=== PATIENT | male | born 1935 | race Caucasian/White ===

== ENCOUNTER 2016-12-23 09:44 | Outpatient (CLI) | payer MEDICARE, BC, OTHER ==
[2016-12-23 12:03] LABS: #Eosinphils 0.1 thou/uL (0.0-0.7); #Lymphocytes 1.2 thou/uL (1.20-3.40); #Monocytes 0.5 thou/uL (0.11-0.59); #Neutrophils 4.8 thou/uL (1.40-6.50); %Basophils 0.5 % (0.0-1.0); %Eosinophils 1.1 % (0.0-10.0); %Lymphocytes 18.8 % (21.0-51.0); %Monocytes 7.3 % (0.0-10.0); Hematocrit 43.3 % (42.0-52.0); Red Blood Cell (RBC) Count 5.15 mill/uL (4.70-6.10); White Blood Cell (WBC) Count 6.6 thou/uL (4.8-10.8)
[2016-12-23 12:27] LABS: ALT (SGPT) 23 U/L (8-55); AST (SGOT) 23 U/L (5-34); Alkaline Phosphatase 79 U/L (40-150); Anion Gap 12 mmol/L (10-20); BUN (Urea Nitrogen) 13 mg/dL (8.4-25.7); Calc. Creatinine Clearance 0 mL/min (70-130); Calcium 9.8 mg/dL (7.8-10.44); Carbon Dioxide 28 mmol/L (23-31); Chloride 105 mmol/L (98-107); Estimated GFR-MDRD 64
== END 2016-12-23 09:45 | disposition home or self-care (01) ==
LOC: LABBT 09:44
PROVIDERS: ATTEND Surgery
DX: Z01.818 Encounter for other preprocedural examination (principal); K40.90 Unilateral inguinal hernia, without obstruction or gangrene, not specified as recurrent
CPT/HCPCS: 80053; 85025; 93005; 93010

== ENCOUNTER 2016-12-29 05:44 | Day surgery (SDC) | payer MEDICARE, BC, OTHER ==
[2016-12-23 10:06] VITALS: BMI 25.1
[2016-12-29] MEDS ORDERED: Fentanyl 100 MCG/2 ML VIAL ONE (06:49)
[2016-12-29] MEDS ORDERED: Bupivacaine HCl 0.5%/Epinephrine 1:200,000/PF 30 ml Vial ONE (07:07)
[2016-12-29] MEDS ORDERED: Ondansetron HCl/PF 4 MG/2 ML Vial ONE (07:35)
[2016-12-29] MEDS ORDERED: Propofol 200 MG/20 ML VIAL ONE (07:35)
[2016-12-29] MEDS ORDERED: Lidocaine 1% PF 5 ML VIAL ONE (07:35)
--- NOTE | 2016-12-29 08:42 | OP ---
DATE OF PROCEDURE: 12/29/2016 PREOPERATIVE DIAGNOSIS: Left inguinal hernia. SURGEON: Darwin Raya M.D. PROCEDURE PERFORMED: Left inguinal hernia repair with mesh. INDICATIONS: The patient is an 81-year-old male who noticed a painful bulge in the left groin and w as found to have a hernia. FINDINGS: Left direct inguinal hernia. PROCEDURE: After informed consent was obtained, the patient was taken to the operating room and giv en general mask anesthesia, placed in the supine position. Groin was prepped and draped in the usua l fashion. Local anesthesia infiltrated subcutaneously and deep. A transverse left inguinal incisi on was performed. The subcu divided sharply. The fascia of the external oblique was incised in the direction of its fibers through the external ring. The spermatic cord isolated with a [place] drai n. Cremasteric fibers were . There was a lipoma of the cord, but no hernia sac found. Th ere was a moderate to large sized direct inguinal hernia. This was circumscribed and reduced. Redu ction maintained with a PHS hernia system which was placed in the preperitoneal space, laid out ante rior, sutured to the pubic tubercle medially with a 2-0 Prolene suture. Laterally, it was tucked un jayashree the external oblique fascia. The cord placed anatomically. The external oblique fascia closed with a running 3-0 Vicryl. Citlali's closed with interrupted 3-0 Vicryl and the skin closed with a r unning subcuticular 4-0 Rapide. Steri-Strips applied. Sterile bandage applied. The patient tolera matthias the procedure well and transferred to recovery in good condition. Sponge and needle count verif ied correct x2.
== END 2016-12-29 09:33 | disposition home or self-care (01) ==
LOC: SDC 05:44
PROVIDERS: ATTEND Surgery
PROC: 0YU60JZ Supplement Left Inguinal Region with Synthetic Substitute, Open Approach (ICD-10-PCS; principal; 2016-12-29)
DX: K40.90 Unilateral inguinal hernia, without obstruction or gangrene, not specified as recurrent (principal); E11.9 Type 2 diabetes mellitus without complications; I10 Essential (primary) hypertension; E78.5 Hyperlipidemia, unspecified; K21.9 Gastro-esophageal reflux disease without esophagitis; F32.9 Major depressive disorder, single episode, unspecified; M19.90 Unspecified osteoarthritis, unspecified site; Z98.41 Cataract extraction status, right eye; Z98.42 Cataract extraction status, left eye; Z96.653 Presence of artificial knee joint, bilateral; Z90.49 Acquired absence of other specified parts of digestive tract; Z96.642 Presence of left artificial hip joint; Z95.9 Presence of cardiac and vascular implant and graft, unspecified; Z79.84 Long term (current) use of oral hypoglycemic drugs; Z79.82 Long term (current) use of aspirin; Z96.1 Presence of intraocular lens; Z91.018 Allergy to other foods; Z88.5 Allergy status to narcotic agent
CPT/HCPCS: 49505; C1781; J0670; J2001; J2405; J2704; J3010

== ENCOUNTER 2017-06-23 12:39 | Outpatient (CLI) | payer MEDICARE, BC, OTHER ==
[2017-06-23 13:56] LABS: Hemoglobin 12.7 g/dL (14.0-18.0); Mean Corpuscular HGB CONC 30.8 g/dL (32.0-36.0); Mean Corpuscular Hemoglobin 25.8 pg (27.0-31.0); Mean Corpuscular Volume 83.8 fl (80.0-94.0); Mean Platelet Volume 7.8 fL (7.4-10.4); Platelet Count 273 thou/uL (130-400); RBC Distribution Width 14.6 % (11.5-14.5); Red Blood Cell (RBC) Count 4.92 mill/uL (4.70-6.10); White Blood Cell (WBC) Count 4.9 thou/uL (4.8-10.8)
[2017-06-23 14:17] LABS: Anion Gap 11 mmol/L (10-20); BUN (Urea Nitrogen) 10 mg/dL (8.4-25.7); Calc. Creatinine Clearance 0 mL/min (70-130); Calcium 9.2 mg/dL (7.8-10.44); Carbon Dioxide 26 mmol/L (23-31); Chloride 106 mmol/L (98-107); Estimated GFR-MDRD 62; Glucose 135 mg/dL (83-110); Potassium 4.1 mmol/L (3.5-5.1); Sodium 139 mmol/L (136-145)
[2017-06-23 14:20] LABS: INR-International Normal Ratio 1.1; PTT 30.1 SEC (22.9-36.1)
== END 2017-06-23 12:40 | disposition home or self-care (01) ==
LOC: LABBT 12:39
PROVIDERS: ATTEND Internal Medicine Cardiovascular Disease
DX: Z01.812 Encounter for preprocedural laboratory examination (principal); I25.10 Atherosclerotic heart disease of native coronary artery without angina pectoris
CPT/HCPCS: 80048; 85027; 85610; 85730

== ENCOUNTER 2017-06-28 05:46 | Day surgery (SDC) | payer MEDICARE, BC, OTHER ==
[2017-06-23 13:05] VITALS: BMI 25.7
[2017-06-28] MEDS ORDERED: Diazepam 5 MG TAB ONE (06:13)
[2017-06-28] MEDS ORDERED: Lidocaine 1% (PF) 30 ML VIAL ONE ×2 (06:34)
[2017-06-28] MEDS ORDERED: Midazolam HCl 2 mg/2 ml Vial ONE (07:30)
[2017-06-28] MEDS ORDERED: Fentanyl 100 MCG/2 ML VIAL ONE (07:30)
[2017-06-28] MEDS ORDERED: Iopamidol 370 76% 100 ML VIAL ONE (09:46)
== END 2017-06-28 12:50 ==
LOC: CCL 05:46
PROVIDERS: ATTEND Internal Medicine Cardiovascular Disease
PROC: 4A023N7 Measurement of Cardiac Sampling and Pressure, Left Heart, Percutaneous Approach (ICD-10-PCS; principal; 2017-06-28)
PROC: B2111ZZ Fluoroscopy of Multiple Coronary Arteries using Low Osmolar Contrast (ICD-10-PCS; 2017-06-28)
DX: I25.118 Atherosclerotic heart disease of native coronary artery with other forms of angina pectoris (principal); I10 Essential (primary) hypertension; E78.2 Mixed hyperlipidemia; E78.00 Pure hypercholesterolemia, unspecified; Z88.5 Allergy status to narcotic agent; Z88.8 Allergy status to other drugs, medicaments and biological substances; Z79.02 Long term (current) use of antithrombotics/antiplatelets; Z79.82 Long term (current) use of aspirin; Z79.84 Long term (current) use of oral hypoglycemic drugs; Z79.899 Other long term (current) drug therapy
CPT/HCPCS: 76942; 93458; C1769; 99152; 99153; J1644; J2001; J2250; J3010

== ENCOUNTER 2017-07-28 13:30 | Inpatient (IN) | payer MEDICARE, BC, OTHER ==
[2017-08-01] MEDS ORDERED: Heparin 10,000 UNITS/1 ML VIAL 30,000 UNITS in Sodium Chloride 0.9% 1,000 ML FS SCH (06:45)
[2017-08-01] MEDS ORDERED: Albumin 5% 500 ML ONE (06:53)
[2017-08-01] MEDS ORDERED: CEFAZOLIN/Water 2 GM/20 ML SYRINGE ONE (07:34)
[2017-08-01] MEDS ORDERED: Midazolam HCl 5 mg/5 ml Vial ONE (09:17)
[2017-08-01] MEDS ORDERED: Fentanyl 100 MCG/2 ML VIAL ONE (09:17)
[2017-08-01] MEDS ORDERED: Midazolam HCl 2 mg/2 ml Vial ONE (09:17)
[2017-08-01] MEDS ORDERED: Vecuronium 10 MG VIAL ONE ×2 (09:18→12:20)
[2017-08-01] MEDS ORDERED: Dexmedetomidine 200 MCG/2 ML VIAL ONE (09:23)
[2017-08-01] MEDS ORDERED: Insulin Regular 300 UNITS/3 ML VIAL ONE (11:55)
[2017-08-01] MEDS ORDERED: Protamine Sulfate 250 MG/25 ML VIAL ONE (12:20)
[2017-08-01] MEDS ORDERED: Heparin 5,000 UNITS/ML VIAL ONE (12:20)
[2017-08-01] MEDS ORDERED: Lidocaine 1% PF 5 ML VIAL ONE (12:20)
[2017-08-01] MEDS ORDERED: Papaverine 60 MG/2 ML VIAL ONE (12:20)
[2017-08-01] MEDS ORDERED: Heparin 30,000 units/30 ml VIAL ONE (12:20)
[2017-08-01] MEDS ORDERED: Aminocaproic Acid 5 GM/20 ML VIAL ONE (12:20)
[2017-08-01] MEDS ORDERED: Thrombin 5000 UNITS/5 ML VIAL ONE (12:20)
[2017-08-01] MEDS ORDERED: Cardioplegic Soln 1,000 ML BAG ONE (12:20)
[2017-08-01] MEDS ORDERED: Magnesium 5 GM/10 ML VIAL ONE (12:20)
[2017-08-01] MEDS ORDERED: Nitroglycerin 50 MG/250 ML BOT ONE (12:20)
[2017-08-01] MEDS ORDERED: Sodium Bicarb 50 MEQ/50 ML Abboject 8.4% SYRINGE ONE (12:20)
[2017-08-01] MEDS ORDERED: Potassium Chloride 60 MEQ/30 ML VIAL ONE (12:20)
[2017-08-01] MEDS ORDERED: ePHEDrine/0.9% NaCl/PF SYRINGE 50 mg/10 ml ONE (12:20)
[2017-08-01] MEDS ORDERED: Calcium Chloride 1 GM/10 ML Abboject SYRINGE ONE (12:20)
[2017-08-01] MEDS ORDERED: PHENYLEPHRINE-NS 100 MCG/ML 10 ML SYRINGE ONE (12:20)
[2017-08-01] MEDS ORDERED: Lidocaine 2% PF 100 mg/5 ml Syringe ONE (12:20)
[2017-08-01] MEDS ORDERED: Mag-Al 1200 mg/1200 mg/30 ML UDCUP PO PRN (13:05)
[2017-08-01] MEDS ORDERED: Phenylephrine 10 MG/NS 250 ML 250 ML IVPB PRN (13:05)
[2017-08-01] MEDS ORDERED: Bisacodyl 10 MG SUPP PR PRN (13:05)
[2017-08-01] MEDS ORDERED: Ondansetron HCl/PF 4 MG/2 ML Vial IVP PRN (13:05)
[2017-08-01] MEDS ORDERED: hydrALAZINE 20 MG/ML VIAL SLOW IVP PRN (13:05)
[2017-08-01] MEDS ORDERED: DOPamine 400 MG/D5W 250 ML 250 ML IVPB PRN (13:05)
[2017-08-01] MEDS ORDERED: HYDROcodone/Acetaminophen 5/325 mg Tablet PO PRN (13:05)
[2017-08-01] MEDS ORDERED: Bisacodyl 5 MG TAB PO PRN (13:05)
[2017-08-01] MEDS ORDERED: Hetastarch 6% 500 ML 500 ML IVPB PRN (13:05)
[2017-08-01] MEDS ORDERED: Fentanyl 100 MCG/2 ML VIAL SLOW IVP PRN ×2 (13:05)
[2017-08-01] MEDS ORDERED: Potassium Chloride 20 MEQ/100 ML PREMIX BAG IVPB PRN (13:05)
[2017-08-01] MEDS ORDERED: Promethazine HCl 25 MG/ML VIAL IM PRN (13:05)
[2017-08-01] MEDS ORDERED: Guaifenesin DM 100-10/5 ML UDCUP PO PRN (13:05)
[2017-08-01] MEDS ORDERED: Nitroglycerin 50 MG/250 ML BOT 250 ML IVPB PRN (13:05)
[2017-08-01] MEDS ORDERED: Acetaminophen 325 MG TAB PO PRN (13:05)
[2017-08-01] MEDS ORDERED: Post-Op Insulin Drip Protocol IVPB ONE (13:05)
[2017-08-01] MEDS ORDERED: Magnesium 2 GM/NS 0.9% 100 ML 2 GM in Premix Bag 1 BAG IVPB SCH (13:15)
[2017-08-01] MEDS ORDERED: Insulin Regular 300 UNITS/3 ML VIAL SC PRN (13:19)
[2017-08-01] MEDS ORDERED: Dextrose 50% Abboject 50 ML SYRINGE SLOW IVP PRN (13:19)
[2017-08-01] MEDS ORDERED: Dextrose 5% in Water 1,000 ML IV PRN (13:19)
[2017-08-01 13:43] LABS: Hemoglobin 10.5 g/dL (14.0-18.0); Mean Corpuscular HGB CONC 31.2 g/dL (32.0-36.0); Mean Corpuscular Hemoglobin 25.6 pg (27.0-31.0); Mean Platelet Volume 7.5 fL (7.4-10.4); Platelet Count 172 thou/uL (130-400); RBC Distribution Width 14.2 % (11.5-14.5); White Blood Cell (WBC) Count 6.3 thou/uL (4.8-10.8)
[2017-08-01 13:44] LABS: INR-International Normal Ratio 1.4; PTT 30.9 SEC (22.9-36.1); Prothrombin Time 17.3 SEC (12.0-14.7)
[2017-08-01 13:59] LABS: Band 24 % (5-11); Lymphocytes 2 % (21-51); MDiff Complete? YES; Metamyelocyte 3 % (0-0); Neutrophil 70 % (42-75); Ovalocytes SLIGHT = 2-5 cells (100X) (0-1/hpf); PLT Morphology Comment Appears Adequate; Polychromasia SLIGHT = 2-3 cells (100X) (0-2/hpf); Reactive Lymphocytes 1 % (0-10); Tear Drops SLIGHT = 2-5 cells (100X) (0-1/hpf); Vacuoles SLIGHT
[2017-08-01 14:02] LABS: Anion Gap 9 mmol/L (10-20); BUN (Urea Nitrogen) 15 mg/dL (8.4-25.7); Calc. Creatinine Clearance 73 mL/min (70-130); Calcium 8.4 mg/dL (7.8-10.44); Carbon Dioxide 23 mmol/L (23-31); Chloride 114 mmol/L (98-107); Estimated GFR-MDRD 80; Glucose 119 mg/dL (83-110); Potassium 3.8 mmol/L (3.5-5.1); Sodium 142 mmol/L (136-145)
[2017-08-01 14:20] VITALS: BMI 26.2
[2017-08-01] MEDS: Lactated Ringer's 1,000 ML IV SCH ×2 (14:22→23:24)
[2017-08-01 14:47] LABS: Actual Bicarbonate (HCO3a) 21.2 mEq/L (22-26); Base Excess (BEa) -2.4 mEq/L (0 (+/-) 2.5); CO2 Tension 32.6 mmHg (35.0-45.0); Hematocrit-ABG 32.9 % (42.0-52.0); Hemoglobin (Hb) 10.7 g/dL (14.0-18.0); O2 Tension (PaO2) 80.4 mmHg (80.0-100.0); pH, Arterial 7.43 (7.35-7.45)
[2017-08-01 14:48] LABS: Calcium, Ionized 1.3 mmol/L (1.12-1.30); Puncture Site ALINE
--- NOTE | 2017-08-01 14:51 | RAD ---
PORTABLE SUPINE CHEST 1 VIEW: Date: 08/01/17 HISTORY: 82-year-old male history postop open heart. COMPARISON: 01/08/14. FINDINGS: Endotracheal tube and right subclavian catheters and chest tubes are in place. There is some bilatera l vascular congestion with some slightly more prominent pleural and parenchymal opacity changes in th e left base, probably postoperative change. No pneumothorax. IMPRESSION: Recent postoperative changes. Mild vascular congestion. Increased markings in the bases, consistent w ith postoperative change. Continue short-term follow-up for clearing or stability. POS: [facility]
[2017-08-01] MEDS: CEFAZOLIN/Water 2 GM/20 ML SYRINGE SLOW IVP SCH ×2 (16:26→23:26)
[2017-08-01] MEDS: Ketorolac Tromethamine 30 MG/ML VIAL IVP SCH ×2 (17:12→23:16)
[2017-08-01 17:59] LABS: Base Excess (BEa) -5.1 mEq/L (0 (+/-) 2.5); CO2 Tension 36.7 mmHg (35.0-45.0); Calcium, Ionized 1.2 mmol/L (1.12-1.30); Hematocrit-ABG 29.4 % (42.0-52.0); Hemoglobin (Hb) 9.6 g/dL (14.0-18.0); O2 Tension (PaO2) 92.7 mmHg (80.0-100.0); Puncture Site ALINE; pH, Arterial 7.35 (7.35-7.45)
[2017-08-01 18:00] LABS: ALV-art Gradient 144.625 (0-20)
[2017-08-01 19:29] LABS: Hemoglobin 9.9 g/dL (14.0-18.0)
[2017-08-01 19:46] LABS: Potassium 4.1 mmol/L (3.5-5.1)
[2017-08-01] MEDS ORDERED: Famotidine 40 MG/4 ML VIAL SLOW IVP SCH (21:00)
[2017-08-01] MEDS ORDERED: Famotidine/PF 20 mg/2ml Vial SLOW IVP SCH (21:00)
[2017-08-01] MEDS ORDERED: Prevnar 13-Val Conj/PF 0.5 ML SYRINGE IM ONE (21:00)
[2017-08-02 05:21] LABS: #Lymphocytes 0.3 thou/uL (1.20-3.40); #Monocytes 0.5 thou/uL (0.11-0.59); #Neutrophils 7.7 thou/uL (1.40-6.50); %Basophils 0.1 % (0.0-1.0); %Eosinophils 0.1 % (0.0-10.0); %Monocytes 5.9 % (0.0-10.0); %Neutrophils 89.9 % (42.0-75.0); Hemoglobin 9.5 g/dL (14.0-18.0); Mean Corpuscular Hemoglobin 26.2 pg (27.0-31.0); Mean Corpuscular Volume 82.1 fl (80.0-94.0); Mean Platelet Volume 8.1 fL (7.4-10.4); Platelet Count 195 thou/uL (130-400); RBC Distribution Width 14.4 % (11.5-14.5); Red Blood Cell (RBC) Count 3.64 mill/uL (4.70-6.10); White Blood Cell (WBC) Count 8.6 thou/uL (4.8-10.8)
[2017-08-02 05:29] LABS: Anion Gap 9 mmol/L (10-20); BUN (Urea Nitrogen) 18 mg/dL (8.4-25.7); Calc. Creatinine Clearance 68 mL/min (70-130); Calcium 8.2 mg/dL (7.8-10.44); Carbon Dioxide 24 mmol/L (23-31); Chloride 113 mmol/L (98-107); Estimated GFR-MDRD 72; Glucose 114 mg/dL (83-110); Sodium 142 mmol/L (136-145)
[2017-08-02] MEDS: Ketorolac Tromethamine 30 MG/ML VIAL IVP SCH ×3 (05:52→17:22)
[2017-08-02] MEDS: CEFAZOLIN/Water 2 GM/20 ML SYRINGE SLOW IVP SCH (06:02)
[2017-08-02] MEDS ORDERED: PRE FILLED SC SCH (07:30)
[2017-08-02] MEDS ORDERED: INSULIN DETEMIR SC SCH (07:30)
--- NOTE | 2017-08-02 08:38 | PRG ---
DATE OF SERVICE: 08/02/2017 HISTORY: Mr. Mcclellan is up in the chair, feeling well. He is in normal sinus rhythm. The chest tubes are in place draining blood-tinged fluid. PHYSICAL EXAMINATION: VITAL SIGNS: Blood pressure 131/67, pulse is 70-80, it is sinus. LUNGS: Clear. CARDIAC: Normal S1, S2. ABDOMEN: Soft, nontender. EXTREMITIES: No edema. ASSESSMENT: 1. Status post coronary bypass grafting. 2. Severe atherosclerotic heart disease. PLAN: 1. Will hold off on Plavix today, probably resume tomorrow if the chest tubes are able to be removed . 2. Beta blockers and SURYA inhibitors as tolerated.
--- NOTE | 2017-08-02 08:50 | RAD ---
PORTABLE AP CHEST XRAY: DATE: 08/02/17. HISTORY: Post open heart surgery. COMPARISON: 08/01/17. FINDINGS: The endotracheal tube has been removed. The bilateral thoracostomy tubes and right internal jugular vein and central venous catheter remain in place and unchanged in position. Mediastinal drain is aga in noted. Postsurgical changes related to CABG are present. There is increased density at the left lung base in a retrocardiac location probably related to atelectasis. Pulmonary vasculature is withi n normal limits. Cardiac silhouette is magnified by projection. Vascular calcification is seen in t he thoracic aorta. There is a questionable tiny pleural effusion. IMPRESSION: Interval removal of the endotracheal tube. The chest is otherwise stable with volume loss at the lef t lung base. POS: [facility]
[2017-08-02] MEDS ORDERED: Aspirin 325 MG TAB PO SCH (09:00)
[2017-08-02] MEDS ORDERED: Clopidogrel Bisulfate 75 MG TAB PO SCH (09:00)
[2017-08-02] MEDS: Aspirin 81 mg Enteric Coated Tablet PO SCH (09:17)
[2017-08-02] MEDS: Famotidine 20 MG TAB PO SCH ×2 (09:17→20:33)
[2017-08-02] MEDS: HYDROcodone/Acetaminophen 5/325 mg Tablet PO PRN ×2 (09:48→20:34)
--- NOTE | 2017-08-02 14:31 | EKG ---
Test Reason : POST CABG Blood Pressure : / mmHG Vent. Rate : 057 BPM Atrial Rate : 057 BPM P-R Int : 186 ms QRS Dur : 096 ms QT Int : 468 ms P-R-T Axes : 078 002 050 degrees QTc Int : 455 ms Sinus bradycardia with marked sinus arrhythmia Low voltage QRS Borderline ECG When compared with ECG of 23-DEC-2016 10:59, Questionable change in QRS axis Nonspecific T wave abnormality no longer evident in Inferior leads Confirmed by DR. Cholo LI ([id number]) on 08/02/2017 2:31:28 PM Referred By: VLAD Confirmed By:DR. Cholo LI
[2017-08-02] MEDS: Carvedilol 3.125 MG TAB PO SCH (17:07)
[2017-08-02] MEDS: Atorvastatin Calcium 40 MG TAB PO SCH (20:33)
[2017-08-03] MEDS: Ketorolac Tromethamine 30 MG/ML VIAL IVP SCH ×2 (00:37→05:09)
[2017-08-03 04:13] LABS: #Lymphocytes 1.1 thou/uL (1.20-3.40); #Monocytes 1.1 thou/uL (0.11-0.59); #Neutrophils 6.3 thou/uL (1.40-6.50); %Basophils 0.2 % (0.0-1.0); %Eosinophils 0.3 % (0.0-10.0); %Lymphocytes 13.4 % (21.0-51.0); %Monocytes 12.8 % (0.0-10.0); %Neutrophils 73.2 % (42.0-75.0); Mean Corpuscular HGB CONC 31.3 g/dL (32.0-36.0); Mean Corpuscular Hemoglobin 25.9 pg (27.0-31.0); Mean Corpuscular Volume 82.7 fl (80.0-94.0); Mean Platelet Volume 8.1 fL (7.4-10.4); Platelet Count 184 thou/uL (130-400); RBC Distribution Width 14.7 % (11.5-14.5); Red Blood Cell (RBC) Count 3.87 mill/uL (4.70-6.10); White Blood Cell (WBC) Count 8.5 thou/uL (4.8-10.8)
[2017-08-03 04:26] LABS: Anion Gap 9 mmol/L (10-20); BUN (Urea Nitrogen) 25 mg/dL (8.4-25.7); Calc. Creatinine Clearance 74 mL/min (70-130); Calcium 7.8 mg/dL (7.8-10.44); Carbon Dioxide 29 mmol/L (23-31); Chloride 108 mmol/L (98-107); Estimated GFR-MDRD 80; Glucose 104 mg/dL (83-110); Potassium 4.1 mmol/L (3.5-5.1); Sodium 142 mmol/L (136-145)
[2017-08-03] MEDS: Carvedilol 3.125 MG TAB PO SCH ×2 (08:32→17:43)
[2017-08-03] MEDS: Aspirin 81 mg Enteric Coated Tablet PO SCH (08:32)
[2017-08-03] MEDS: Famotidine 20 MG TAB PO SCH ×2 (08:32→20:06)
--- NOTE | 2017-08-03 08:44 | PRG ---
DATE OF SERVICE: 08/03/2017 Mr. Mcclellan is doing well. He is awake and alert. The chest tubes are out. He feels well. PHYSICAL EXAMINATION: VITAL SIGNS: Blood pressure 132/65, pulse is 70. LUNGS: Clear. CARDIAC: Normal S1, normal S2. ABDOMEN: Soft, nontender. EXTREMITIES: There is no edema. ASSESSMENT: 1. Status post bypass surgery, doing well. 2. Hypertension, controlled. PLAN: Continue current medical regimen. The patient will be transferred to the floor. We will hold Plavix at this point.
[2017-08-03] MEDS ORDERED: Clopidogrel Bisulfate 75 MG TAB PO SCH (09:00)
[2017-08-03] MEDS ORDERED: Ondansetron HCl/PF 4 MG/2 ML Vial IVP PRN (09:11)
[2017-08-03] MEDS ORDERED: Aspirin 325 mg Enteric Coated Tablet PO SCH ×2 (09:11→09:30)
[2017-08-03] MEDS ORDERED: Fentanyl 100 MCG/2 ML VIAL SLOW IVP PRN (09:11)
[2017-08-03] MEDS ORDERED: Mag-Al 1200 mg/1200 mg/30 ML UDCUP PO PRN (09:11)
[2017-08-03] MEDS ORDERED: Bisacodyl 5 MG TAB PO PRN (09:11)
[2017-08-03] MEDS ORDERED: Furosemide 40 MG TAB PO SCH ×2 (09:11→09:30)
[2017-08-03] MEDS ORDERED: Potassium Chloride 10 MEQ TAB PO SCH ×2 (09:11→09:30)
[2017-08-03] MEDS ORDERED: Nitroglycerin 0.4 MG TAB (25 Tab Bottle) SL PRN (09:11)
[2017-08-03] MEDS ORDERED: Bisacodyl 10 MG SUPP PR PRN (09:11)
[2017-08-03] MEDS ORDERED: Famotidine 20 MG TAB PO SCH ×2 (09:11→09:30)
[2017-08-03] MEDS ORDERED: Acetaminophen 325 MG TAB PO PRN (09:11)
[2017-08-03] MEDS ORDERED: Guaifenesin DM 100-10/5 ML UDCUP PO PRN (09:11)
--- NOTE | 2017-08-03 09:39 | RAD ---
CHEST 1 VIEW: Date: 08/03/17 HISTORY: Open heart surgery. COMPARISON: Radiograph from prior day. FINDINGS: Right central venous catheter tip is in good position. Mediastinal drains and thoracostomy drains are similar. No pneumothorax. Small left effusion. Improving edema. IMPRESSION: Improving postoperative status. POS: [facility]
[2017-08-03] MEDS ORDERED: Dextrose 5% in Water 1,000 ML IV PRN (10:03)
[2017-08-03] MEDS ORDERED: Dextrose 50% Abboject 50 ML SYRINGE SLOW IVP PRN (10:03)
[2017-08-03] MEDS: HYDROcodone/Acetaminophen 5/325 mg Tablet PO PRN ×2 (11:16→17:44)
[2017-08-03] MEDS: Insulin Regular 300 UNITS/3 ML VIAL SC PRN ×2 (18:15→21:29)
[2017-08-03] MEDS: Atorvastatin Calcium 40 MG TAB PO SCH (20:06)
--- NOTE | 2017-08-04 08:28 | PRG ---
DATE OF SERVICE: 08/04/2017 SUBJECTIVE: Mr. Mcclellan feels well. He was up walking around yesterday, feeling well. OBJECTIVE: VITAL SIGNS: Blood pressure is 137/73, pulse 80. LUNGS: Clear. CARDIAC: Normal S1, normal S2. ABDOMEN: Soft, nontender. EXTREMITIES: There is no edema. ASSESSMENT: 1. Status post bypass surgery, doing well. 2. Hypercholesterolemia, on medicine. 3. Relatively diffuse atherosclerotic heart disease. PLAN: 1. We will go ahead and resume clopidogrel one tablet a day on Tuesday. 2. Home in 1-2 days.
[2017-08-04] MEDS: Aspirin 325 mg Enteric Coated Tablet PO SCH (08:44)
[2017-08-04] MEDS: Famotidine 20 MG TAB PO SCH ×2 (08:44→20:07)
[2017-08-04] MEDS: Furosemide 40 MG TAB PO SCH (08:44)
[2017-08-04] MEDS: metFORMIN 500 MG TAB PO SCH (08:44)
[2017-08-04] MEDS: Potassium Chloride 10 MEQ TAB PO SCH (08:45)
[2017-08-04] MEDS: Carvedilol 3.125 MG TAB PO SCH ×2 (08:45→18:00)
[2017-08-04] MEDS ORDERED: Ketorolac Tromethamine 30 MG/ML VIAL IVP SCH ×2 (15:30→21:00)
[2017-08-04] MEDS ORDERED: diphenhydrAMINE 25 MG CAP PO PRN (18:16)
[2017-08-04] MEDS ORDERED: diphenhydrAMINE 25 MG CAP PO SCH (18:30)
--- NOTE | 2017-08-04 19:45 | PRG ---
DATE OF SERVICE: 08/04/2017 SUBJECTIVE: Mr. Mcclellan had sudden onset of left-sided chest pain today. It was different from his an ginal chest pain. There were no ischemic changes on the EKG. There is some very subtle concave up S T elevation in V4 and V5 as well as lead II, suspicious for pericarditis also slight elevation in AVF . ASSESSMENT: 1. Postoperative status. 2. Probably pericardial pain. PLAN: 1. Intravenous Toradol was given that would help, so we will give him another dose tonight. 2. Start colchicine as well.
[2017-08-04] MEDS: Colchicine 0.6 MG TAB PO SCH (20:07)
[2017-08-04] MEDS: Atorvastatin Calcium 40 MG TAB PO SCH (20:07)
--- NOTE | 2017-08-05 06:35 | DIS ---
HOSPITAL COURSE: The patient was admitted and underwent coronary bypass grafting x3. His postoperat matt course was notable for some symptoms of pericarditis. He was ambulating in the halls without dif ficulty. Vital signs were stable with good blood pressure. Sugars were mildly elevated in the 150-170 range. He will be discharged home on Coreg 3.125 b.i.d., tramadol for pain. He will resume his metformin 5 00 a day, aspirin 1 a day, atorvastatin 80 a day, Plavix 75 a day, Benadryl p.r.n., torsemide p.r.n., isosorbide 60 mg daily. He will also resume his Protonix 40 a day. I have held his amlodipine and ramipril at this time and these may be restarted as needed post-discharge.
[2017-08-05] MEDS: Famotidine 20 MG TAB PO SCH (08:03)
[2017-08-05] MEDS: metFORMIN 500 MG TAB PO SCH (08:04)
[2017-08-05] MEDS: Potassium Chloride 10 MEQ TAB PO SCH (08:04)
[2017-08-05] MEDS: Aspirin 325 mg Enteric Coated Tablet PO SCH (08:04)
[2017-08-05] MEDS: Carvedilol 3.125 MG TAB PO SCH (08:04)
[2017-08-05] MEDS: Furosemide 40 MG TAB PO SCH (08:04)
[2017-08-05] MEDS: Colchicine 0.6 MG TAB PO SCH (08:04)
[2017-08-05] MEDS ORDERED: diphenhydrAMINE 25 MG CAP PO SCH (09:00)
[2017-08-05 09:24] VITALS: BP 135/65; TEMP 98.6
[2017-08-06] MEDS ORDERED: Clopidogrel Bisulfate 75 MG TAB PO SCH (09:00)
--- NOTE | 2017-08-08 11:38 | OP ---
DATE OF PROCEDURE: 08/09/2017 PREOPERATIVE DIAGNOSIS: Coronary artery disease. POSTOPERATIVE DIAGNOSIS: Coronary artery disease. PROCEDURE: Coronary bypass graft x3, left internal mammary artery to the LAD, 2 mm; saphenous vein graft to the OM, 2 mm; right coronary artery, 1.5 mm. SURGEON: Kilo Espinoza M.D. MANUGRAPHER: Manfred Corley MD TRANSFUSION: None. PROCEDURE IN DETAIL: After adequate anesthesia had been obtained, the patient was prepped and draped . Dr. Corley did vein harvest of the greater saphenous vein while I performed a median sternoto my. Mammary artery was harvested and after heparinization was divided distally. Following completio n of this, the aorta and right atrium were cannulated. Cardiopulmonary bypass was instituted. The v essels were inspected for grafting. The aorta cross-clamped and a liter of cardioplegia given throug h the aortic root. Distal anastomoses were completed, following which, the cross-clamp was removed, the partial occluding clamp placed, and 2 proximal anastomoses performed and marked with rings. The patient was then weaned from cardiopulmonary bypass, cannulas removed, and protamine given systemical ly. Mediastinal and left pleural drains were placed, following which the sternum was reapproximated with #7 interrupted wire using vancomycin paste on the sternal edges, platelet rich blood, and platel et-poor plasma. Subcutaneous tissue and skin were closed in layers.
--- NOTE | 2017-08-10 12:53 | PQF ---
SERGEY PIMENTEL JAMES M MD [id number] CLINICAL DOCUMENTATION CLARIFICATION FORM: POST DISCHARGE Addendum to original discharge summary date: 08/08/2017 DATE: 08/10/2017 ATTN: Dr. Espinoza Please exercise your independent, professional judgment in responding to the clarification form. Clinical indicators are provided on the bottom of this form for your review Please check appropriate box(s): [ ] Pericarditis is a postoperative complication related to current/recent surgery [ ] acute [ ] Other (please specify) [ ] Pericarditis is not a postoperative complication related to current/recent surgery [ ] acute [ ] Other (please specify) [ ] Other diagnosis (please specify) ] Unable to determine In addition, please specify: Present on Admission (POA): [ ] Yes [ ] No [ ] Unable to determine CLINICAL INDICATORS - SIGNS / SYMPTOMS / LABS Per discharge summary: His postoperative course was notable for some symptoms of pericarditis. Per 08/04 progress note: Sudden onset of left sided chest pain today. There is some very subtle convave up ST elevated in V4 and V5 as well as lead II, suspicious for pericarditis also light elevation in AVF. RISK FACTORS Per operative report: CABG x 3 on 08/01/17. TREATMENT: Per 08/04 progress notes: IV Toradol. Colchicine. (This form is maintained as a part of the permanent medical record) 2014 [employer]. All Rights Reserved Beatris [email or web address] [phone] MTDD
== END 2017-08-05 11:30 | disposition home or self-care (01) | DRG 236 ==
LOC: SURG A 08-01 06:01 → CCU 08-01 12:38 → 2NO 08-03 09:09
PROVIDERS: ADMIT Thoracic Surgery (Cardiothoracic Vascular Surgery); ATTEND Thoracic Surgery (Cardiothoracic Vascular Surgery)
PROC: 02100Z9 Bypass Coronary Artery, One Artery from Left Internal Mammary, Open Approach (ICD-10-PCS; principal; 2017-08-01)
PROC: 021109W Bypass Coronary Artery, Two Arteries from Aorta with Autologous Venous Tissue, Open Approach (ICD-10-PCS; 2017-08-01)
PROC: 5A1221Z Performance of Cardiac Output, Continuous (ICD-10-PCS; 2017-08-01)
DX: I25.10 Atherosclerotic heart disease of native coronary artery without angina pectoris (principal); I31.9 Disease of pericardium, unspecified; I10 Essential (primary) hypertension; E78.2 Mixed hyperlipidemia; E11.9 Type 2 diabetes mellitus without complications; E78.00 Pure hypercholesterolemia, unspecified; Z79.84 Long term (current) use of oral hypoglycemic drugs; Z79.02 Long term (current) use of antithrombotics/antiplatelets; Z79.82 Long term (current) use of aspirin; Z79.899 Other long term (current) drug therapy
CPT/HCPCS: 36415; 36416; 71045; 80048; 82805; 85025; 85610; 85730; 93005; 93010; 93798; 94002; 94150; A4216; J1265; J1642; J1644; J1815; J1885; J2001; J2250; J2370; J2405; J2440; J2720; J3010; J3370; J3475; J3480; J7050; P9045; S0017; S0028

== ENCOUNTER 2017-07-28 13:34 | Outpatient (CLI) | payer MEDICARE, BC, OTHER ==
[2017-07-28 15:36] LABS: Hemoglobin 12.5 g/dL (14.0-18.0); Mean Corpuscular HGB CONC 31.8 g/dL (32.0-36.0); Mean Corpuscular Hemoglobin 26.1 pg (27.0-31.0); Mean Corpuscular Volume 82.1 fl (80.0-94.0); Mean Platelet Volume 7.5 fL (7.4-10.4); Platelet Count 287 thou/uL (130-400); RBC Distribution Width 14.3 % (11.5-14.5); Red Blood Cell (RBC) Count 4.79 mill/uL (4.70-6.10); White Blood Cell (WBC) Count 5.2 thou/uL (4.8-10.8)
[2017-07-28 15:53] LABS: Anion Gap 13 mmol/L (10-20); BUN (Urea Nitrogen) 13 mg/dL (8.4-25.7); Calc. Creatinine Clearance 0 mL/min (70-130); Calcium 9.4 mg/dL (7.8-10.44); Carbon Dioxide 26 mmol/L (23-31); Chloride 105 mmol/L (98-107); Estimated GFR-MDRD 69; Glucose 112 mg/dL (83-110); Potassium 4.1 mmol/L (3.5-5.1); Sodium 140 mmol/L (136-145)
== END 2017-07-28 13:35 | disposition home or self-care (01) ==
LOC: LABBT 13:34
PROVIDERS: ATTEND Thoracic Surgery (Cardiothoracic Vascular Surgery)
DX: Z01.812 Encounter for preprocedural laboratory examination (principal); I25.10 Atherosclerotic heart disease of native coronary artery without angina pectoris
CPT/HCPCS: 80048; 85027; 86850; 86900; 86901

== ENCOUNTER 2017-10-10 00:47 | Inpatient (IN) | payer MEDICARE, BC, OTHER ==
[2017-10-10 01:56] LABS: #Eosinphils 0.1 thou/uL (0.0-0.7); #Monocytes 0.4 thou/uL (0.11-0.59); #Neutrophils 5.2 thou/uL (1.40-6.50); %Basophils 0.2 % (0.0-1.0); %Eosinophils 1.3 % (0.0-10.0); %Lymphocytes 15.5 % (21.0-51.0); %Monocytes 6.4 % (0.0-10.0); %Neutrophils 76.7 % (42.0-75.0); Mean Corpuscular HGB CONC 31.9 g/dL (32.0-36.0); Mean Corpuscular Hemoglobin 24.9 pg (27.0-31.0); Mean Corpuscular Volume 78.1 fL (78.0-98.0); Mean Platelet Volume 7.1 fL (7.4-10.4); Platelet Count 262 thou/uL (130-400); RBC Distribution Width 14.6 % (11.5-14.5); Red Blood Cell (RBC) Count 3.22 mill/uL (4.70-6.10); White Blood Cell (WBC) Count 6.7 thou/uL (4.8-10.8)
[2017-10-10 02:16] LABS: ALT (SGPT) 10 U/L (8-55); AST (SGOT) 11 U/L (5-34); Albumin 2.8 g/dL (3.4-4.8); Alkaline Phosphatase 57 U/L (40-150); Anion Gap 10 mmol/L (10-20); BUN (Urea Nitrogen) 16 mg/dL (8.4-25.7); Bilirubin, Total 0.8 mg/dL (0.2-1.2); Calc. Creatinine Clearance 0 mL/min (70-130); Calcium 8.1 mg/dL (7.8-10.44); Carbon Dioxide 23 mmol/L (23-31); Chloride 112 mmol/L (98-107); Estimated GFR-MDRD 84; Globulin 1.8 g/dL (2.4-3.5); Glucose 186 mg/dL (83-110); Potassium 4.2 mmol/L (3.5-5.1); Protein, Total 4.6 g/dL (5.8-8.1); Sodium 141 mmol/L (136-145)
[2017-10-10] MEDS ORDERED: Ondansetron HCl/PF 4 MG/2 ML Vial ONE (03:05)
[2017-10-10 04:13] LABS: INR-International Normal Ratio 1.3; PTT 30.1 SEC (22.9-36.1); Prothrombin Time 15.9 SEC (12.0-14.7)
[2017-10-10] MEDS ORDERED: Acetaminophen 325 MG TAB PO PRN (05:29)
[2017-10-10] MEDS ORDERED: Ondansetron ODT 4 MG TAB PO PRN (05:29)
[2017-10-10] MEDS ORDERED: Ondansetron HCl/PF 4 MG/2 ML Vial IVP PRN (05:29)
[2017-10-10 05:32] VITALS: BMI 24.6
--- NOTE | 2017-10-10 05:51 | HP ---
DATE OF ADMISSION: 10/10/2017 TIME OF SERVICE: 0440 hours. CHIEF COMPLAINT: Rectal bleeding. HISTORY OF PRESENT ILLNESS: Mr. Mcclellan is a pleasant 82-year-old male who was approximately 2 months status post coronary artery bypass grafting by Dr. Espinoza and has been on Plavix for a number of years for coronary artery disease followed by Dr. Perez. Around 2:00 on 10/09/2017, the patient developed some bright red blood per rectum after trying to str ain to have a bowel movement. He had three episodes of bright red blood that seemed to stop and did not recur until 10:00 p.m. At that point, he had 2 or 3 more episodes and the blood seemed to get sl ightly darker with increasing amount of clots. He had nausea and vomiting x2 earlier in the day with no blood and has had bilateral lower extremity edema. He is not taking any diuretics today due to t he bleeding. After the second set of episodes, the patient presented to the emergency department and was found to have a hemoglobin of 8.0. Dr. Jenkins was consulted by the emergency department and recommended 2 units of packed red blood cells, which was ordered. We were subsequently called for ad mission to the ICU. The patient denies any chest pain, difficulty breathing, no nausea or vomiting at present, no diarrhe a. He has not had any more bright red blood per rectum since being in the ER. No fevers or chills. No history of hemorrhoids that he is aware of. PAST MEDICAL HISTORY: 1. Diabetes mellitus type 2. 2. Coronary artery disease. 3. Nephrolithiasis. PAST SURGICAL HISTORY: Include: 1. PTCA x2 in the past. 2. Bilateral cataract repair. 3. Left rotator cuff repair in 2009. 4. Right TKA and left TKA. 5. Cholecystectomy. 6. Hernia repair. 7. Coronary artery bypass grafting approximately [address] Espinoza. 8. Colovesicular fistula repair in 2004. HOME MEDICATIONS: 1. Aspirin 325 mg daily. 2. Plavix 75 mg daily. 3. Lipitor 80 mg p.o. at bedtime. 4. Protonix 40 mg daily. 5. Benadryl 25 mg p.o. b.i.d. p.r.n. 6. Metformin 500 mg daily. 7. Coreg 3.125 mg p.o. b.i.d. 8. Tramadol 50 mg p.o. p.r.n. 9. Altace 10 mg daily. 10. Torsemide 20 mg p.o. daily. 11. Nitroglycerin 0.4 mg sublingual p.r.n. 12. Colchicine 0.6 mg p.o. b.i.d. for 7 days when having gout flare. ALLERGIES: MINERAL OIL and MORPHINE. FAMILY HISTORY: Negative for clotting or bleeding disorder, no immune dysfunction, no premature brigid nary artery disease. SOCIAL HISTORY: Negative for habits x3. His accompanies him. She is his surrogate medical dec ision maker if he becomes unable. He does wish to be a FULL CODE. REVIEW OF SYSTEMS: All systems reviewed and negative except as stated per HPI. PHYSICAL EXAMINATION: VITAL SIGNS: Temperature 97.9, pulse 94, blood pressure 130/74, respiratory rate 16, satting 97% on room air. GENERAL: He is awake. He is alert. He is oriented x3. Well-developed, well-nourished, white male who appears to be in no distress, but does appear pale. HEENT: Normocephalic, atraumatic. Pupils equal, round, react to light bilaterally. Mucous membrane s are moist. No visible lesions or thrush. He is anicteric. NECK: Supple, without lymphadenopathy, JVD, or thyromegaly with normal carotid upstrokes. I do not appreciate bruits. LUNGS: Clear to auscultation bilaterally. No wheezing, no rales, no rhonchi. No prolonged expirato ry phase. CARDIOVASCULAR: Normal S1 and S2. No S3 or S4. No audible murmurs. ABDOMEN: Soft, nontender, nondistended, no mass or organomegaly. EXTREMITIES: No cyanosis or clubbing with trace pedal edema. SKIN: Warm, moist, and well perfused, although pale. He has no rashes or other lesions. MUSCULOSKELETAL: Normal to inspection. Large joints appear normal with no evidence of inflammation or palpable effusions. NEUROLOGIC: Cranial nerves II-XII grossly intact. No focal neurologic deficit. He has 5/5 strength and normal speech. LABORATORY DATA: Sodium 141, potassium 4.2, chloride 112, bicarbonate 23, BUN 16, creatinine 0.7, gl ucose 186 and calcium 8.4. Liver function completely within normal limits. CBC showed a white count of 6.7, hemoglobin 8.0, hematocrit of 25.1, platelet count is 262,000. Of note, his last hemoglobin in 08/03/2017 was 10.0. RADIOGRAPHIC STUDIES: None. ASSESSMENT AND PLAN: 1. Lower gastrointestinal bleed, patient did have more bright red blood per rectum and when initiall y began earlier today, but seems to be slowing down with more clots this evening. I will give him 2 units packed red blood cells, serial H&H and IV fluids. Recheck his serial H&H in a couple of hours when the blood is complete and reassess. GI has been consulted for endoscopy. We will keep him n.p. o. otherwise and follow up on GI recommendations. 2. Acute blood loss anemia: Hemoglobin is 8.0, likely lower once given fluids, make euvolemic. We will give units of packed red blood cells. We will trend out his H&Hs and transfuse, hemoglobin abov e 8.0. 3. History of coronary artery disease, no current symptoms. The patient to have bypass surgery 2 mo nths ago. We will hold his Plavix at present. We will hold his Coreg due to low blood pressure. 4. History of diabetes mellitus type 2, patient will be kept n.p.o. at present. He is normally on m etformin 500 mg daily, we will hold that at present and he begins hyperglycemic, we will need to add insulin sliding scale. 5. History of nephrolithiasis. No current symptoms.
[2017-10-10] MEDS: Sodium Chloride 0.9% 1,000 ML IV SCH ×3 (07:07→16:40)
[2017-10-10] MEDS ORDERED: GoLYTELY 4,000 ml Bottle PO SCH (07:30)
[2017-10-10] MEDS: Famotidine/PF 20 mg/2ml Vial SLOW IVP SCH ×2 (07:49→20:15)
[2017-10-10 08:31] LABS: Hemoglobin 10.6 g/dL (14.0-18.0); Platelet Count 288 thou/uL (130-400)
--- NOTE | 2017-10-10 09:28 | PDOC.PN ---
- Subjective Encounter Start Date: 10/10/17 Encounter Start Time: 09:26 Subjective: still passing clots pr rectum - Objective Resuscitation Status: Resuscitation Status FULL:Full Resuscitation MAR Reviewed: Yes Vital Signs & Weight: Vital Signs (12 hours) Temp Pulse Resp Pulse Ox 10/10/17 07:29 98.1 F 98 23 H 10/10/17 07:00 98.1 F 10/10/17 06:00 99.0 F 10/10/17 05:45 99.0 F 100 22 H 97 Weight Weight 171 lb 11.841 oz Most Recent Monitor Data Heart Rate from ECG 95 NIBP 101/64 NIBP BP-Mean 81 Respiration from ECG 21 SpO2 99 I&O: 10/09/17 10/10/17 10/11/17 06:59 06:59 06:59 Intake Total 0 Output Total 0 100 Balance 0 -100 Result Diagrams: 10/10/17 08:13 10/10/17 01:47 Phys Exam - Physical Examination Neck: no JVD Respiratory: clear to auscultation bilateral Cardiovascular: RRR, no significant murmur Gastrointestinal: soft, non-tender Musculoskeletal: no edema Dx/Plan (1) Rectal bleeding Code(s): K62.5 - HEMORRHAGE OF ANUS AND RECTUM Status: Acute (2) CAD (coronary artery disease), [place] coronary artery Code(s): I25.10 - ATHSCL HEART DISEASE OF [place] CORONARY ARTERY W/O ANG PCTRS Status: Acute Qualifiers: [place] vs. transplanted heart: [place] heart Associated angina: without angina Qualified Code(s): I25.10 - Atherosclerotic heart disease of [place] coronary artery without angina pectoris (3) DM type 2 (diabetes mellitus, type 2) Status: Acute Qualifiers: Diabetes mellitus tank terminal gauger insulin use: without half-way use Diabetes mellitus complication status: without complication Qualified Code(s): E11.9 - Type 2 diabetes mellitus without complications (4) Anemia due to blood loss, acute Code(s): D62 - ACUTE POSTHEMORRHAGIC ANEMIA Status: Acute - Plan serial H&H, transfuse for Hg < 7 -: endoscopy planned today -: consult Dr Perez * .
[2017-10-10 10:49] LABS: Hemoglobin 9.6 g/dL (14.0-18.0); Platelet Count 306 thou/uL (130-400)
--- NOTE | 2017-10-10 14:20 | CON ---
DATE OF CONSULTATION: 10/10/2017 SERVICE: Pulmonary Medicine. REASON FOR CONSULTATION: ICU patient. HISTORY OF PRESENT ILLNESS: The patient is an 82-year-old white male with past medical history significant for essentially nothing. He is in his usual state of health when he started passing bright red blood per rectum. He had multiple bowel movements over a couple of hours. He then started getting lightheaded whenever he did stand up. As such, he came to the emergency department. Overnight, he was given a bowel prep. His bloody stools cleared out. He is currently passing brown stools. He denies any current fevers or chills. Otherwise, he is in his usual state of health and has no complaints of shortness of breath, cough, sputum production, or recent infectious prodrome. PAST MEDICAL HISTORY: 1. Type 2 diabetes mellitus. 2. Coronary artery disease. 3. Nephrolithiasis. PAST SURGICAL HISTORY: 1. PCI x2. 2. Coronary bypass graft, roughly 2 months ago. 3. Cataract surgery, bilateral. 4. Rotator cuff repair, left. 5. Bilateral total knee surgeries. 6. Cholecystectomy. 7. Hiatal hernia repair. 8. Colovesicular fistula repair in 2004. ALLERGIES: MINERAL OIL, MORPHINE. MEDICATIONS: List of his inpatient medications were reviewed. No specific updates were made at this time. FAMILY HISTORY: Noncontributory. SOCIAL HISTORY: Negative for alcohol, tobacco or illicit drug use. He has no exposure to chemicals, dust, asbestos or tuberculosis. REVIEW OF SYSTEMS: General, head, ears, eyes, nose, throat, cardiovascular, respiratory, GI, , musculoskeletal, neurologic and skin is negative except as mentioned in the HPI. PHYSICAL EXAMINATION: VITAL SIGNS: Afebrile, pulse 98, blood pressure 113/68, respirations 22, saturation 100% on room air. GENERAL: The patient is awake, alert, no apparent distress. LUNGS: Excellent air entry. There is no prolonged expiratory phase, wheezing, rhonchi, or crackles present. HEART: Normal rate, regular. ABDOMEN: Soft, nontender, nondistended. Bowel sounds are positive. MUSCULOSKELETAL: No cyanosis or clubbing. There is no pitting in the bilateral lower extremities. NEUROLOGIC: Grossly nonfocal. LABORATORY DATA: WBC 6.7, platelets 262, hemoglobin 9.6 and down trending gently. This represents a more than appropriate rise with 1 unit of blood that he received. Baseline is close to 10. INR 1.3. Basic metabolic profile and liver function studies are unremarkable. ASSESSMENT: 1. Lower gastrointestinal bleed, suspected. 2. Acute blood loss anemia. PLAN: We will trend his hemoglobins. If he has at low risk of rebleeding, he will be transitioned to the floor. If he is at high risk, we will watch him in ICU for an additional 24 hours. We will know more after the patient undergoes EGD and colonoscopy. Pulmonary will continue to follow along in this location, but when he goes to the floor, I will sign off. 70 minutes have been devoted to this patient in various activities. I personally reviewed all imaging studies and laboratory data noted within this document. For fifty percent of this time, I was interacting with the patient at the bedside or coordinating care with the care team. For the remainder of the time I was immediately available to the patient in the hospital unit. KHADIJAH
[2017-10-10 14:30] LABS: Platelet Count 271 thou/uL (130-400)
[2017-10-10 14:31] LABS: Hemoglobin 8.8 g/dL (14.0-18.0)
[2017-10-10] MEDS ORDERED: Lidocaine 1% PF 5 ML VIAL ONE (14:57)
[2017-10-10] MEDS ORDERED: PROPOFOL 200 MG/20 ML VIAL ONE (14:57)
--- NOTE | 2017-10-10 18:51 | CON ---
DATE OF CONSULTATION: 10/10/2017 REASON FOR CONSULTATION: 1. Gastrointestinal bleed. 2. History of CAD, status post CABG. HISTORY OF PRESENT ILLNESS: Mr. Mcclellan is a very pleasant 82-year-old gentleman who was seen and eval uated by Dr. Cha Perez. He recently presented with GI bleed. He has a history of CAD status pos t bypass surgery 1 month ago. He is on aspirin and Plavix. PAST MEDICAL HISTORY: CAD status post bypass surgery, nephrolithiasis, diabetes mellitus, cataract s urgery, rotator cuff surgery, knee surgery, cholecystectomy, and hernia repair. ALLERGIES: MORPHINE. HOME MEDICATIONS: Acetaminophen, aspirin, tramadol, metformin, torsemide, ramipril, Protonix, nitro, Plavix, carvedilol, and Lipitor. REVIEW OF SYSTEMS: Ten-point review of systems as above, otherwise negative. PHYSICAL EXAMINATION: GENERAL: Patient is a pleasant male who is in no acute distress. The patient appears his stated age . VITAL SIGNS: Blood pressure 126/61, pulse 100, respirations 20. NEUROLOGIC: The patient is alert and oriented times 3 with no focal neurologic deficits. HEENT: Sclerae without icterus. Mouth has moist mucous membranes with normal pallor. NECK: No JVD. Carotid upstroke brisk. No bruits bilaterally. LUNGS: Clear to auscultation with unlabored respirations. BACK: No scoliosis or kyphosis. CARDIAC: Regular rate and rhythm with normal S1 and S2. No S3 or S4 noted. No significant rubs, mu rmurs, thrills, or gallops noted throughout the precordium. PMI is not displaced. There is no bonifacio ternal heave. ABDOMEN: Soft, nontender, nondistended. No peritoneal signs present. No hepatosplenomegaly. No ab normal striae. EXTREMITIES: 2+ femoral and 2+ dorsalis pedis pulses. No cyanosis, clubbing, or edema. SKIN: No gross abnormalities. PERTINENT LABS: Hemoglobin 9.0, was 8.0, creatinine 0.87. IMPRESSION: 1. Gastrointestinal bleed. 2. Coronary artery disease. 3. Status post bypass surgery. RECOMMENDATIONS: From a CV standpoint, we would recommend stopping Plavix and aspirin. He is planni ng to proceed with colonoscopy. He has no symptoms suggesting angina. We will keep hemoglobin above 9. Patient denies previous history of PCI. I will likely need to restart aspirin. We will leave t o discretion of Dr. Cha Perez.
[2017-10-11] MEDS ORDERED: Sodium Chloride 0.9% 250 ML 250 ML IVPB SCH (01:45)
[2017-10-11 02:29] LABS: #Lymphocytes 2.3 thou/uL (1.20-3.40); #Monocytes 0.7 thou/uL (0.11-0.59); #Neutrophils 5.4 thou/uL (1.40-6.50); %Basophils 0.3 % (0.0-1.0); %Eosinophils 0.3 % (0.0-10.0); %Lymphocytes 27.1 % (21.0-51.0); %Monocytes 8.2 % (0.0-10.0); %Neutrophils 64.1 % (42.0-75.0); Hemoglobin 7.2 g/dL (14.0-18.0); Mean Corpuscular HGB CONC 33.1 g/dL (32.0-36.0); Mean Corpuscular Hemoglobin 26.3 pg (27.0-31.0); Mean Corpuscular Volume 79.2 fL (78.0-98.0); Mean Platelet Volume 7.2 fL (7.4-10.4); Platelet Count 272 thou/uL (130-400); RBC Distribution Width 14.3 % (11.5-14.5); Red Blood Cell (RBC) Count 2.75 mill/uL (4.70-6.10); White Blood Cell (WBC) Count 8.5 thou/uL (4.8-10.8)
[2017-10-11 02:43] LABS: Anion Gap 9 mmol/L (10-20); BUN (Urea Nitrogen) 13 mg/dL (8.4-25.7); Calc. Creatinine Clearance 79 mL/min (70-130); Calcium 7.5 mg/dL (7.8-10.44); Carbon Dioxide 24 mmol/L (23-31); Chloride 114 mmol/L (98-107); Estimated GFR-MDRD Greater than 90; Glucose 149 mg/dL (83-110); Magnesium 1.5 mg/dL (1.6-2.6); Potassium 3.8 mmol/L (3.5-5.1); Sodium 143 mmol/L (136-145)
[2017-10-11] MEDS ORDERED: Sodium Chloride 0.45% 1,000 ML IV SCH (07:15)
[2017-10-11] MEDS ORDERED: Magnesium Sulfate 4 GM in Sodium Chloride 0.9% 250 ML 250 ML IVPB SCH (07:15)
--- NOTE | 2017-10-11 07:19 | PRG ---
DATE OF SERVICE: 10/11/2017 SERVICE: Pulmonary Medicine INTERVAL HISTORY: The patient did poorly overnight. He started having multiple bloody bowel movemen ts once again. As such, he is going down for a nuclear medicine evaluation. He is a little bit ligh theaded when he stands up, but otherwise, he is doing well hemodynamically. PHYSICAL EXAMINATION: VITAL SIGNS: Afebrile, pulse 97, blood pressure 103/71, respirations 18, saturation 98% on room air. GENERAL: The patient is awake, alert, in no apparent distress. LUNGS: Decent air entry. There is no prolonged expiratory phase, wheezing, rhonchi or crackles. HEART: Normal rate, regular. ABDOMEN: Soft, nontender, nondistended. Bowel sounds are positive. MUSCULOSKELETAL: No cyanosis or clubbing. No pitting in the bilateral lower extremities. NEUROLOGIC: Grossly nonfocal. LABORATORY DATA: Hemoglobin has trended down from 9.8 to 7.2 this morning at 0154. We do not have a repeat since then. INR 1.3. Magnesium 1.5, calcium 7.5, anion gap 9, chloride 114. Sodium is up t rending to 143. ASSESSMENT: 1. Acute blood loss anemia. 2. Lower gastrointestinal bleed, suspected. 3. Hypomagnesemia. PLAN AND DISCUSSION: I will replace the magnesium. I will also give him some calcium. Agree with t he transfusion. We will trend the hemoglobins through time. Hopefully, we will identify the source of the bleeding so that we can intervene on it. If it is a lower bleed that does not stop, he may re quire surgical evaluation. We will follow the tagged red blood cell scan closely.
--- NOTE | 2017-10-11 08:10 | OP ---
DATE OF SURGERY: 10/10/2017 OPERATIVE PROCEDURE: Esophagogastroduodenoscopy. PREOPERATIVE DIAGNOSES: Acute gastrointestinal bleeding, anemia, syncope. POSTOPERATIVE DIAGNOSIS: Hiatus hernia. Otherwise, normal exam. PROCEDURE NOTE: The patient was placed on his left lateral position and was given sedation by Anesth esia Department. A Pentax video gastroscope under direct vision was passed down the oropharynx, pass ed GE junction into the stomach and subsequently into descending duodenum. The esophageal mucosa amelie ears normal. In the GE junction, no pathology seen. He has a small hiatus hernia. Upon entering th e stomach, patient was found to have some food residues, which is somewhat surprising, as he had a Go LYTELY prep this morning for colonoscopy. The food residue was seen stomach and also in the du odenum . Water was used to wash out. The mucosa appeared normal. Retroflexion failed to show any pathology in the fundus and cardia. In the gastric body, gastric antrum, no pathology seen. The duodenal bulb, descending duodenum, no pathology seen. The stomach decompressed and the scope remov ed.
--- NOTE | 2017-10-11 08:26 | NM ---
GI BLEEDING SCAN: INDICATION: Active GI bleeding. FINDINGS: The patient was given 27 mCi of tagged red blood cells IV. Sequential imaging of abdomen obtained. FINDINGS: Initial images show normal blood pool activity. At approximately 1 hour into the exam, a focus of ac tivity is noted in the right upper abdomen. This activity increases on subsequent images and follows the transverse and left colon to the rectum. IMPRESSION: A positive GI bleeding scan. Activity begins in the right upper quadrant which could indicate a focu s of bleeding in the ascending colon. POS: SARA
[2017-10-11 08:32] LABS: Hemoglobin 7.6 g/dL (14.0-18.0)
--- NOTE | 2017-10-11 09:08 | OP ---
DATE OF SURGERY: 10/10/2017 OPERATING PROCEDURE: Colonoscopy. PREOPERATIVE DIAGNOSIS: An 82-year-old male with acute gastrointestinal bleeding, underwent colonoscopy. POSTOPERATIVE DIAGNOSES: 1. Hemorrhoids. 2. Diffuse colonic diverticular disease, mild, all the way to the right colon. 3. Two small polyps in the rectum and lower sigmoid colon area. 4. Large, pedunculated polyp in the sigmoid colon area, not removed during the exam, because patient is on Plavix. At time of endoscopy, the colon was completely free of any blood. PROCEDURE NOTE: The patient was placed on his left lateral position and was given sedation by Anesthesia Department. A rectal exam was done, and scope was advanced into the rectum. No lesion felt on rectal exam. A Pentax video colonoscope was introduced into the rectum and advanced all the way into the cecum. The prep was excellent. The mucosa appeared normal throughout the colon. The ileocecal area and cecum, no pathology seen. The patient had mild diverticular disease over the right colon area. He had diverticulosis of the sigmoid colon all the way to the right colon. It was mild. Withdrawal of scope in the cecum, ascending colon, hepatic flexure, transverse colon, splenic flexure, descending colon shows mild diverticular disease. In the sigmoid colon area, patient was found to have a pedunculated polyp with a long thick stalk. This was not removed during the examination. He had couple of most small polyps in the lower sigmoid colon area. Retroflexion of scope in the rectum showed hemorrhoids. DISCHARGE RECOMMENDATIONS: 1. Clear-liquid diet today. 2. Serial H and H. 3. Advance diet to a regular diet tomorrow , if no recurrence of bleeding. Patient will be brought back in the next few months for a colonoscopy to remove the colon polyps . [facility]ITALJennifer
--- NOTE | 2017-10-11 09:17 | PRG ---
DATE OF SERVICE: 10/11/2017 Mr. Mcclellan had another gastrointestinal bleed this morning, bright red blood. The patient is not having chest pain or pressure. PHYSICAL EXAMINATION: VITAL SIGNS: His heart rate is 102. Blood pressure 114/67. He looks pale. LUNGS: Clear. CARDIAC: Tachycardic for rest. ABDOMEN: Soft, nontender. EXTREMITIES: No edema. ASSESSMENT: 1. Recent bypass surgery. 2. Recurrent bleeding. 3. Gastrointestinal scan reveals possibly from the ascending colon. PLAN: 1. Continue to hold antiplatelet drugs. 2. All blood pressure medicines on hold. 3. We will continue to follow with you.
--- NOTE | 2017-10-11 09:25 | CON ---
DATE OF CONSULTATION: 10/10/2017 REFERRING PHYSICIAN: Dr. Juan Ramachandran. REASON FOR CONSULTATION: Hematochezia, syncope, hypotension. HISTORY OF PRESENT ILLNESS: Mr. Vic Mcclellan is a very pleasant 82-year-old male, who is a regular patient of Dr. Anne Marie Abdi. The patient also does see Dr. Perez for his heart disease over the years. The patient has been on Plavix and aspirin for many years. The patient had a heart bypass by Dr. Espinoza 2 months ago. The patient now has been doing very well until yesterday afternoon around 03:00 when he started rectal bleeding. The bleeding was painless. He had no abdominal pain, no nausea, no vomiting. He had no perianal discomfort. He had no similar episodes in the past. He never had a colonoscopy. The patient had 3 bloody stools and continued bleeding until 10: 00 p.m. last night. He had 2 or 3 episodes of bloody stools with blood clots and he fainted at home. He was brought to the ER. He was found tachycardic and also transiently hypotensive. He was given some fluid bolus. He was packed RBCs. I saw him in the ICU. His blood pressure is still around 97/60 and his pulse rate of around 100. Patient did have 1 episode of nausea and vomiting yesterday afternoon. However, the vomiting was mostly bilious and did not have any blood or any coughing or emesis. He denies abdominal pain, indigestion, dyspepsia. He had no similar episodes in the past. No relevant history. MEDICAL ILLNESSES: 1. Diabetes mellitus, type 2. 2. Coronary artery disease, status post coronary artery bypass graft. 3. History of nephrolithiasis. SURGERIES: He has had multiple surgeries in the past. 1. PTCA x3 in the past. 2. Bilateral cataract surgery. 3. Left rotator cuff repair. 4. Bilateral hip replacement and also left knee replacement. 5. Cholecystectomy. 6. hernia repair. 7. Coronary artery bypass graft. 8. Colovesical fistula repair in 2004. ALLERGIES: MINERAL OIL and MORPHINE. MEDICATIONS: Include, 1. Aspirin 325 once a day. 2. Plavix 75 once a day 3. Lipitor 80 mg p.o. at bedtime. 4. Protonix 40 once a day. 5. Benadryl 25 mg p.o. b.i.d. p.r.n. 6. Metformin 500 mg once a day. 7. Coreg 3.125 mg p.o. twice a day. 8. Tramadol 50 mg p.o. p.r.n. 9. Altace 10 mg once a day. 10. Torsemide 20 mg once a day. 11. Nitroglycerin p.r.n. 12. Colchicine 0.6 mg p.o. b.i.d. p.r.n. for gouty attacks. FAMILY HISTORY: There is no family history of any malignancy, premature coronary artery disease . SOCIAL HISTORY: Patient is . He does not smoke or drink alcohol. REVIEW OF SYSTEMS: A 10-point system review: Constitutional: No history of fever. No weight loss. His energy level is good until today. Respiratory System: No history of chronic cough, hemoptysis, dyspnea. Cardiovascular System: No chest pain, no palpitation, no exertional dyspnea, orthopnea, or PND. Gastrointestinal: As stated in history of present illness. Genitourinary : No dysuria, hematuria, or frequent urination. Musculoskeletal/Endocrine/ Hematological: Not relevant. PHYSICAL EXAMINATION: GENERAL: Patient is a very pleasant, elderly male, appears very comfortable. VITAL SIGNS: His pulse is around 98 to 100; blood pressure, when I saw him in the ICU, was around 97/60. HEENT: Conjunctivae clear. NECK: Supple. No adenitis or thyromegaly noted. CARDIOVASCULAR SYSTEM: First and second heart sounds normal. LUNGS: Clear to auscultation. ABDOMEN: Soft. Abdomen is nondistended. Abdomen is nontender. No organomegaly or masses. EXTREMITIES: Reveal no edema. CENTRAL NERVOUS SYSTEM: Grossly within normal limits. ADMITTING LABORATORY DATA: CBC: WBC 6700, hemoglobin 8, hematocrit is 25.1, platelet count is 262,000, polymorphs 76, lymphocytes 15, monocytes 6. A repeat H and H at 08:00 at 10.6 and 38.8 dropping to 9.6 and 30.1. Subsequently , his chem panel shows sodium 141, potassium 4.2, chloride is 112, bicarbonate is 23, BUN is 16, creatinine 0.87, glucose 186, calcium 8.1, bilirubin 0.8, AST 11, ALT 10, alkaline phosphatase 57, albumin 2.8. CLINICAL IMPRESSION: An 82-year-old male with, 1. Acute gastrointestinal bleeding. The bleeding appears to be more suggestive of colonic origin. However, he became hypotensive and also had a syncopal episode. Very seldom patients with colonic bleeding pass out. I am not sure if there is an upper gastrointestinal pathology to explain the syncope. 2. Recent coronary artery bypass graft, 2 months ago. 3. Diabetes mellitus. 4. History of gout. 5. Nephrolithiasis. RECOMMENDATIONS: N.p.o. Transfuse for followup H and H. We will plan for EGD and colonoscopy as soon as possible after he can be prepped. MTDD
--- NOTE | 2017-10-11 10:23 | PDOC.PN ---
- Subjective Encounter Start Date: 10/11/17 Encounter Start Time: 10:21 Subjective: alert, going to surgery - Objective Resuscitation Status: Resuscitation Status FULL:Full Resuscitation MAR Reviewed: Yes Vital Signs & Weight: Vital Signs (12 hours) Temp Pulse Resp BP Pulse Ox 10/11/17 09:00 98.1 F 10/11/17 05:58 98.5 F 99 14 103/71 10/11/17 03:14 98.5 F 101 H 16 114/67 99 10/11/17 02:00 99 F 10/11/17 00:00 98 F Weight Weight 171 lb 11.841 oz Most Recent Monitor Data Heart Rate from ECG 106 NIBP 111/68 NIBP BP-Mean 85 Respiration from ECG 28 SpO2 98 I&O: 10/10/17 10/11/17 10/12/17 06:59 06:59 06:59 Intake Total 0 7853 0 Output Total 0 1125 200 Balance 0 6728 -200 Result Diagrams: 10/11/17 08:13 10/11/17 01:54 Phys Exam - Physical Examination Neck: no JVD Respiratory: clear to auscultation bilateral Cardiovascular: RRR, no significant murmur Gastrointestinal: soft, non-tender, positive bowel sounds Musculoskeletal: no edema Dx/Plan (1) Rectal bleeding Code(s): K62.5 - HEMORRHAGE OF ANUS AND RECTUM Status: Acute (2) CAD (coronary artery disease), [place] coronary artery Code(s): I25.10 - ATHSCL HEART DISEASE OF [place] CORONARY ARTERY W/O ANG PCTRS Status: Acute Qualifiers: [place] vs. transplanted heart: [place] heart Associated angina: without angina Qualified Code(s): I25.10 - Atherosclerotic heart disease of [place] coronary artery without angina pectoris (3) DM type 2 (diabetes mellitus, type 2) Status: Acute Qualifiers: Diabetes mellitus terminal operator insulin use: without terminal operator use Diabetes mellitus complication status: without complication Qualified Code(s): E11.9 - Type 2 diabetes mellitus without complications (4) Anemia due to blood loss, acute Code(s): D62 - ACUTE POSTHEMORRHAGIC ANEMIA Status: Acute - Plan emergent surgery -: FFP/ PRBC- keep Hg >9 -: hold ASA/ plavix * .
[2017-10-11] MEDS ORDERED: Fentanyl 250 MCG/5 ML VIAL ONE (10:36)
[2017-10-11] MEDS ORDERED: Albumin 5% 0 ML ONE (10:36)
[2017-10-11] MEDS ORDERED: Midazolam HCl 2 mg/2 ml Vial ONE (10:36)
[2017-10-11] MEDS ORDERED: Promethazine HCl 25 MG/ML VIAL ONE (10:40)
[2017-10-11] MEDS ORDERED: Phenylephrine HCL 10 MG/ML VIAL ONE (11:10)
[2017-10-11] MEDS ORDERED: Piperacillin/Tazobactam 3.375 GM, Admixture Fee 1 EACH in Sodium Chloride 0.9% 100 ML IVPB SCH (12:00)
--- NOTE | 2017-10-11 12:06 | CON ---
DATE OF CONSULTATION: 10/11/2017 CHIEF COMPLAINT: Lower GI bleed. HISTORY OF PRESENT ILLNESS: This is an 82-year-old male who presented with a 2-day history of bright red blood per rectum. He was admitted, EGD and colonoscopy negative, bleeding scan last night light s up in the right colon. He has had 5 units transfused. He just passed another bloody bowel movemen t. He denies any abdominal pain. He was on aspirin and Plavix, but has been off that for 2 days. PAST MEDICAL HISTORY: Coronary artery disease, diabetes, nephrolithiasis. PAST SURGICAL HISTORY: Include open cholecystectomy, open sigmoid colectomy for a colovesical fistul a. He recently had a CABG 07/2017, cataract surgery, left inguinal hernia repair, bilateral total kn ee arthroscopy. MEDICATIONS: Aspirin, Plavix, Lipitor, Protonix, Benadryl, metformin, Coreg, tramadol, Altace, torse mide, nitroglycerin and colchicine. ALLERGIES: MINERAL OIL and MORPHINE. SOCIAL HISTORY: He is . No tobacco or alcohol. FAMILY HISTORY: Unremarkable. PHYSICAL EXAMINATION: VITAL SIGNS: Afebrile. Temperature 98.1, pulse 106, blood pressure is 103/71. GENERAL: He is a well-developed, well-nourished male. He is awake, alert and oriented. He is somew hat pale. LUNGS: Clear. He has a healing sternotomy scar. ABDOMEN: Nondistended, soft, nontender. He has well healed surgical scars in the left groin, low mi dline and right paramedian upper abdomen. I feel no hernias. EXTREMITIES: Unremarkable. LABORATORY AND X-RAY FINDINGS: His white count is 8.5, hemoglobin of 7.2, hematocrit 21. His electr olytes are fine. Glucose elevated at 149. His PT is 15.9, INR 1.3, PTT of 30. Positive bleeding sc an in the right upper quadrant consistent with focus of bleeding in the ascending colon. ASSESSMENT: Active lower gastrointestinal bleed. PLAN: Exploratory laparotomy, right hemicolectomy. CONSENT: I have discussed the planned procedure as well as risk of bleeding, infection, leakage from anastomosis, injury to bowel, bladder, recurrence of bleeding. He understands and gives informed co nsent.
[2017-10-11] MEDS ORDERED: Ondansetron HCl/PF 4 MG/2 ML Vial ONE (12:48)
[2017-10-11] MEDS ORDERED: Dexamethasone 20 MG/5 ML VIAL ONE (12:48)
[2017-10-11] MEDS ORDERED: Calcium Chloride 1 GM/10 ML Abboject SYRINGE ONE (12:48)
[2017-10-11] MEDS ORDERED: Sodium Bicarb 50 MEQ/50 ML VIAL ONE (12:48)
[2017-10-11] MEDS ORDERED: Glycopyrrolate 0.2 MG/ML 5 ML SYRINGE ONE (12:48)
[2017-10-11] MEDS ORDERED: Lidocaine 1% PF 5 ML VIAL ONE (12:48)
[2017-10-11] MEDS ORDERED: PROPOFOL 200 MG/20 ML VIAL ONE (12:48)
[2017-10-11] MEDS ORDERED: ePHEDrine/0.9% NaCl/PF SYRINGE 50 mg/10 ml ONE (12:48)
[2017-10-11] MEDS ORDERED: PHENYLEPHRINE-NS 100 MCG/ML 10 ML SYRINGE ONE (12:48)
[2017-10-11] MEDS ORDERED: SUGAMMADEX SODIUM 500 MG/5 ML VIAL ONE (13:18)
[2017-10-11] MEDS ORDERED: SUGAMMADEX SODIUM 200 MG/2 ML VIAL ONE (13:19)
[2017-10-11] MEDS ORDERED: Sodium Bicarb 50 MEQ/50 ML Abboject 8.4% SYRINGE ONE (13:26)
[2017-10-11] MEDS ORDERED: Promethazine HCl 25 MG/ML VIAL IM PRN ×2 (13:28→13:46)
[2017-10-11] MEDS ORDERED: Insulin Regular 300 UNITS/3 ML VIAL SC PRN (13:28)
[2017-10-11] MEDS ORDERED: hydrALAZINE 20 MG/ML VIAL SLOW IVP PRN (13:28)
[2017-10-11] MEDS ORDERED: Fentanyl 100 MCG/2 ML VIAL SLOW IVP PRN ×2 (13:32)
[2017-10-11] MEDS ORDERED: Promethazine HCl 25 MG/ML VIAL SLOW IVP PRN (13:46)
[2017-10-11] MEDS ORDERED: Ondansetron HCl/PF 4 MG/2 ML Vial IVP PRN (13:46)
[2017-10-11] MEDS: Ketorolac Tromethamine 30 MG/ML VIAL IVP SCH (14:43)
[2017-10-11] MEDS: Acetaminophen 1,000 MG in Premix Bag 1 BAG IVPB SCH (14:43)
[2017-10-11] MEDS: Sodium Chloride 0.9% 1,000 ML IV SCH (14:51)
[2017-10-11] MEDS: Famotidine/PF 20 mg/2ml Vial SLOW IVP SCH ×2 (15:00→22:03)
[2017-10-11 15:08] LABS: Anisocytosis SLIGHT = 6-15 cells (100X) (0-5/hpf); Hemoglobin 11.1 g/dL (14.0-18.0); Lymphocytes 18 % (21-51); MDiff Complete? YES; Mean Corpuscular HGB CONC 34.9 g/dL (32.0-36.0); Mean Corpuscular Hemoglobin 28.5 pg (27.0-31.0); Mean Corpuscular Volume 81.7 fL (78.0-98.0); Monocytes 2 % (0-10); Neutrophil 80 % (42-75); PLT Morphology Comment Appears Adequate; Platelet Count 252 thou/uL (130-400); RBC Distribution Width 14.5 % (11.5-14.5); Red Blood Cell (RBC) Count 3.89 mill/uL (4.70-6.10); White Blood Cell (WBC) Count 5.7 thou/uL (4.8-10.8)
[2017-10-11] MEDS: Piperacillin/Tazobactam 3.375 GM, Admixture Fee 1 EACH in Sodium Chloride 0.9% 100 ML IVPB SCH (17:33)
--- NOTE | 2017-10-11 18:29 | OP ---
DATE OF PROCEDURE: 10/11/2017 PREOPERATIVE DIAGNOSIS: Lower gastrointestinal bleed. SURGEON: Darwin Raya M.D. PROCEDURE PERFORMED: Open right hemicolectomy, extensive lysis of adhesions, small bowel resection, repair of enterotomy. INDICATIONS: This is an 82-year-old male with a lower GI bleed requiring 6 units of packed cells, 2 of FFP and 2 of platelets who continued to bleed after colonoscopy was unremarkable. A bleeding scan was positive for the source being the right colon. FINDINGS: Extensive adhesions. He had a midline mesh from an old ventral hernia repair and the smal l bowel into the mesh and although I tried to get it off the mesh, I deserosalized a large segm ent of the small intestine this mesh and we elected to remove that portion. Also got a single enterotomy that was repaired. He had quite a bit of diverticula. He also had small bowel adherent t o the gallbladder fossa, which had to be mobilized in order to do the operation. PROCEDURE IN DETAIL: After informed consent was obtained, the patient was taken to the operating autumn m and given general endotracheal anesthesia. He was placed in the supine position. His abdomen was prepped and draped in the usual fashion. A midline incision was performed and subcu divided sharply down to the fascia. Above the mesh, the fascia was incised with the 10 blade and then very carefully was able to divide the mesh to avoid small bowel that was attached to it and then extended it furthe r inferiorly. Then, a very tedious lysis of adhesions was performed to try and separate the attached small bowel from the mesh and I got a long segment of serosal avulsion during this process. The muc naomi was then entered, but it was visible and it was such a long segment. It was about 6 inches of de serosalized small bowel. He elected to resect this portion. The mesentery was divided utilizing the LigaSure, proximal and distal control with Halina clamps. Small bowel was divided utilizing a 10 blade. A primary end-to-end handsewn single layer anastomosis was performed with interrupted 3-0 Ajay ryl suture. The mesentery was also closed with 3-0 Vicryl suture. I had to do quite a bit of other lysis of adhesions and then was able to start the operation, was able to find the cecum and the cecum was mobilized along the white line of [place] and to the right upper quadrant; however, I could not ex tend it onto the transverse colon because the small bowel was adherent to the gallbladder fossa from an open cholecystectomy. Very careful dissection was performed to separate the small bowel from the liver and then was able to further mobilize the right colon. The small bowel was then divided utiliz ing a KANDACE at the terminal ileum and the colon was divided in the mid transverse colon with the KANDACE. The mesentery then divided utilizing the LigaSure. A [id number] functional end-to-end pro-peristal tic anastomosis was then performed. The ileum was approximated to the colon so that I had about 4 in ches of small bowel distal to the colon staple line. Then, enterotomies were performed on the antime senteric side of the small bowel as well as just distal to the staple line on the colon. A 75 KANDACE wa s inserted one limb in each limb of bowel, fired and the common enterotomy closed with the contour st apler. The mesentery closed with a running 3-0 Vicryl suture. The liver was cauterized, but was sti ll oozing and so Surgicel was applied to the gallbladder fossa. In the pelvis, there was a small bow el that had also looped and was a potential internal hernia worse, this was taken down sharply with M etzenbaum scissors and an enterotomy occurred at this point that was closed with 3-0 Vicryl suture. The small bowel was then run from the anastomosis proximally to the ligament of Treitz, inspected car efully. There were no other potential enterotomies seen. Hemostasis was assured. The abdomen thoro ughly irrigated with saline and removed, washed with 2 liters of saline, then what was left of his om entum was placed anteriorly and the abdominal wall was closed with a running looped #1 PDS. The subc u was irrigated with saline. Hemostasis assured and skin closed with skin cassie. A sterile bandag e was applied. The patient tolerated the procedure well, transferred to recovery in fair condition.
--- NOTE | 2017-10-11 21:37 | PRG ---
DATE OF SERVICE: 10/11/2017 SUBJECTIVE: Mr. Vic Mcclellan is a very pleasant 82-year-old hospitalized on the morning of 10/10/2017 following issues with hematochezia, hypotension, syncope. The patient was transfused 2 units of blood yesterday. The new hemoglobin came to 9.6, initially 9. The patient underwent emergent EGD and colonoscopy. The EGD was negative for hiatus hernia. The colonoscopy showed diffuse colonic diverticular disease. It was mild, but it was seen all the way to the right colon. At the time of colonoscopy, the colon was completely empty of any blood or any old blood. The exam was very good. It was felt that the patient most likely has bleeding from diverticular disease. The patient was started on clear liquid diet last night and he did well until 2 a.m. this morning. This morning, he had an episode of hematochezia with large blood clots and fresh blood. He had no abdominal pain. No nausea or vomiting. Blood count dropped to 7.2 from 9 grams. He was given 2 units of packed RBCs. He was sent for a stat radionuclide scan. This was completed at about 08 :30 this morning. The scan shows active bleeding from the right colon starting at the ascending colon, coming all the way down to the left colon. OBJECTIVE: VITAL SIGNS: He is tachycardic. Pulse rate is 115. Blood pressure is stable around 106/70. CARDIOVASCULAR: First and second heart sounds are normal. LUNGS: Clear to auscultate. ABDOMEN: Soft. Abdomen is nondistended. Abdomen is nontender. EXTREMITIES: Revealed no edema. LABORATORY DATA: Shows the last one was hemoglobin 7.6 after 2 units of blood early this morning. He is still passing large amount of blood and blood clot. CLINICAL IMPRESSION: Recurrent gastrointestinal bleeding, most likely from diverticular disease. The gastrointestinal bleeding scan study showing blood from the right colon, ascending colon area. The patient will be given two more units of_ packed RBCs now. He continues to bleed. RECOMMENDATION: Transfuse 1 more unit of packed RBCs. I did call Dr. Darwin Raya, the general surgeon, for consultation and possible right colectomy. This was conveyed to the patient and patient's who is in the room. They are agreeable. In fact, the patient's wanted to see Dr. Darwin Raya, that is why he was called. The patient most likely will have a colectomy later on today by Dr. Darwin Raya. [facility]
[2017-10-11] MEDS: Famotidine 20 MG TAB PO SCH (22:03)
[2017-10-12] MEDS: Acetaminophen 1,000 MG in Premix Bag 1 BAG IVPB SCH ×3 (00:10→12:26)
[2017-10-12] MEDS: Sodium Chloride 0.9% 1,000 ML IV SCH ×2 (00:10→10:24)
[2017-10-12] MEDS: Ketorolac Tromethamine 30 MG/ML VIAL IVP SCH ×5 (00:11→23:08)
[2017-10-12] MEDS: Piperacillin/Tazobactam 3.375 GM, Admixture Fee 1 EACH in Sodium Chloride 0.9% 100 ML IVPB SCH ×5 (00:14→23:09)
[2017-10-12 04:49] LABS: Band 18 % (5-11); Hemoglobin 9.2 g/dL (14.0-18.0); Lymphocytes 11 % (21-51); MDiff Complete? YES; Mean Corpuscular HGB CONC 34.2 g/dL (32.0-36.0); Mean Corpuscular Hemoglobin 28.2 pg (27.0-31.0); Mean Corpuscular Volume 82.4 fL (78.0-98.0); Mean Platelet Volume 7.3 fL (7.4-10.4); Monocytes 2 % (0-10); Neutrophil 69 % (42-75); PLT Morphology Comment Appears Adequate; Platelet Count 236 thou/uL (130-400); RBC Distribution Width 14.5 % (11.5-14.5); Red Blood Cell (RBC) Count 3.28 mill/uL (4.70-6.10); White Blood Cell (WBC) Count 12.5 thou/uL (4.8-10.8)
[2017-10-12 04:53] LABS: Anion Gap 7 mmol/L (10-20); BUN (Urea Nitrogen) 11 mg/dL (8.4-25.7); Calc. Creatinine Clearance 83 mL/min (70-130); Calcium 7.4 mg/dL (7.8-10.44); Carbon Dioxide 26 mmol/L (23-31); Chloride 118 mmol/L (98-107); Estimated GFR-MDRD Greater than 90; Glucose 156 mg/dL (83-110); Potassium 3.3 mmol/L (3.5-5.1); Sodium 148 mmol/L (136-145)
[2017-10-12] MEDS: Ondansetron HCl/PF 4 MG/2 ML Vial IVP PRN ×2 (05:40→11:10)
[2017-10-12] MEDS: Famotidine 20 MG TAB PO SCH ×2 (07:54→19:19)
[2017-10-12] MEDS ORDERED: Sodium Chloride 0.9% 1,000 ML IV SCH (09:22)
[2017-10-12] MEDS: Famotidine/PF 20 mg/2ml Vial SLOW IVP SCH ×2 (09:23→19:42)
[2017-10-12] MEDS ORDERED: Furosemide 20 MG/2 ML VIAL SLOW IVP SCH (09:30)
--- NOTE | 2017-10-12 09:30 | PDOC.PN ---
- Subjective Encounter Start Date: 10/12/17 Encounter Start Time: 09:28 Subjective: alert, comfortable - Objective Resuscitation Status: Resuscitation Status FULL:Full Resuscitation MAR Reviewed: Yes Vital Signs & Weight: Vital Signs (12 hours) Temp Pulse Ox 10/12/17 04:00 97.9 F 10/12/17 00:00 97.8 F 97 Weight Weight 171 lb 11.841 oz Most Recent Monitor Data Heart Rate from ECG 88 NIBP 114/58 NIBP BP-Mean 71 Respiration from ECG 14 SpO2 91 I&O: 10/11/17 10/12/17 10/13/17 06:59 06:59 06:59 Intake Total 7853 2728 Output Total 1125 1320 Balance 6728 1408 Result Diagrams: 10/12/17 04:26 10/12/17 04:26 Additional Labs: Accuchecks 10/12/17 10/12/17 10/11/17 04:44 00:26 13:48 POC Glucose 146 H 132 H 156 H 10/11/17 10/11/17 13:25 10:42 POC Glucose 195 H 126 H Phys Exam - Physical Examination NGT Neck: no JVD Respiratory: clear to auscultation bilateral Cardiovascular: RRR, no significant murmur Gastrointestinal: soft Quiet Musculoskeletal: edema present Dx/Plan (1) Rectal bleeding Code(s): K62.5 - HEMORRHAGE OF ANUS AND RECTUM Status: Acute (2) CAD (coronary artery disease), [place] coronary artery Code(s): I25.10 - ATHSCL HEART DISEASE OF [place] CORONARY ARTERY W/O ANG PCTRS Status: Acute Qualifiers: [place] vs. transplanted heart: [place] heart Associated angina: without angina Qualified Code(s): I25.10 - Atherosclerotic heart disease of [place] coronary artery without angina pectoris (3) DM type 2 (diabetes mellitus, type 2) Status: Acute Qualifiers: Diabetes mellitus halfway insulin use: without ocean transportation intermediary use Diabetes mellitus complication status: without complication Qualified Code(s): E11.9 - Type 2 diabetes mellitus without complications (4) Anemia due to blood loss, acute Code(s): D62 - ACUTE POSTHEMORRHAGIC ANEMIA Status: Acute - Plan post op diverticulosis bleeding -: Ileus, NGT to suction -: Hg stable -: doing very well * .
--- NOTE | 2017-10-12 09:33 | PRG ---
DATE OF SERVICE: 10/12/2017 Mr. Mcclellan underwent a partial colectomy yesterday. He is doing well today. He is awake and alert. PHYSICAL EXAMINATION: VITAL SIGNS: Blood pressure 114/58, pulse 90, it is regular. LUNGS: Clear. CARDIAC: Normal S1, S2. ASSESSMENT: 1. Status post diverticular bleed. 2. Mild hypokalemia. 3. Mildly volume overloaded. PLAN: 1. Reduce intravenous fluid. 2. Will hold off on diuretics today, with probably drop his potassium level further if we give him d iuretic. Reduce the fluid, appears to be spontaneously diuresing to some degree.
--- NOTE | 2017-10-12 09:39 | PRG ---
DATE OF SERVICE: 10/12/2017 SERVICE: Pulmonary Medicine. INTERVAL HISTORY: Patient has done absolutely fantastic overnight. There were no specific complaint s of fevers, chills, nausea or vomiting. He is having appropriate belly discomfort. That being said , he is having bowel sounds. He has had very little output from the NG tube over the last 24 hours. He still remains in bed and has not gotten up since yesterday before the procedure. PHYSICAL EXAMINATION: VITAL SIGNS: Afebrile, pulse 98, blood pressure 111/60, respirations 23, saturation 94% on 2 liters nasal cannula. GENERAL: Patient is awake, alert, no apparent distress. LUNGS: Decent air entry. Dependent crackles are minimal. HEART: Normal rate, regular. ABDOMEN: Soft. Tenderness to palpation is appropriate. There is no rebound or guarding. Bowel douglas nds are hypoactive. MUSCULOSKELETAL: No cyanosis or clubbing. A 1+ pitting is present. LABORATORY DATA: WBC 12.5, hemoglobin 9.2 and settling nicely, platelets 236,000. Band count is cur rently 18%. INR 1.3. Potassium 3.3, creatinine 0.77 and stable. Sodium 148, chloride 111. ASSESSMENT: 1. Acute blood loss anemia. 2. Lower gastrointestinal bleed secondary to diverticulosis. 3. Status post right colectomy, postop day #1. PLAN: We will replace the potassium. I will add some D5 water over the next 24 hours, but he has a little volume up. As such, he will get a dose of Lasix. Physical therapy will be involved today. F oley catheter will be removed once he is mobilized. Arterial line can be discontinued. I am going t o clamp the NG tube. If he has minimal output over the next 4-6 hours, GI will be notified and we wi ll consider initiating a diet. If he does well through the day, he can be considered for transition to the floor.
[2017-10-12] MEDS: Dextrose 5% in Water 1,000 ML IV SCH ×2 (09:58→22:06)
[2017-10-12] MEDS ORDERED: Potassium Chloride 20 MEQ in Premix Bag 1 BAG IVPB SCH (10:00)
[2017-10-12] MEDS ORDERED: Ondansetron HCl/PF 4 MG/2 ML Vial IVP PRN (11:06)
[2017-10-12] MEDS ORDERED: Potassium Chloride 20 MEQ in Sodium Chloride 0.9% 250 ML 250 ML IVPB SCH (12:00)
[2017-10-12] MEDS: Potassium Chloride 20 MEQ in Sodium Chloride 0.9% 250 ML 250 ML IVPB SCH ×2 (12:27→14:45)
[2017-10-12] MEDS ORDERED: Acetaminophen 325 MG TAB PO PRN (18:00)
--- NOTE | 2017-10-13 01:42 | PRG ---
DATE OF SERVICE: 10/12/2017 SUBJECTIVE: Mr. Vic Mcclellan is a very pleasant 82-year-old male hospitalized on Tuesday m allyssa with acute GI bleeding. He was hypotensive with blood transfusion, blood pressure came up. H e had an emergent EGD and colonoscopy on the same day. The EGD was negative. The colonoscopy showed diffuse colonic diverticulosis all the way to the right colon. At the time of endoscopy, he had no bleeding. It was felt the patient stopped bleeding completely. The patient is also on clear liquid diet. hemorrhaging again. He has had a stat GI bleeding scan. The bleeding scan showed the b leeding from the right colon. He underwent right colectomy by Dr. Darwin Raya. He has done well afte r surgery. OBJECTIVE: GENERAL: He appears comfortable. He is in no distress. VITAL SIGNS: Stable. His pulse is 109, blood pressure is 101/58. CARDIOVASCULAR SYSTEM AND LUNGS: Within normal limits. ABDOMEN: Abdomen is nondistended. Soft. Abdomen is mildly tender. LABORATORY DATA: From today, CBC: WBC is 12,500, hemoglobin 9.2, hematocrit 27, , platelet cou nt is 236,000. CLINICAL IMPRESSION: 1. Acute gastrointestinal bleeding, status post right colectomy for right-sided diverticular bleedin g. 2. Status post coronary artery bypass two months ago. 3. Anemia due to blood loss. OVERALL IMPRESSION: He seems to be doing well after surgery. He has had no bleeding. He is not pas sing any flatus. RECOMMENDATION: Followup labs and postop care as per Dr. Darwin Raya.
[2017-10-13 04:55] LABS: #Eosinphils 0.1 thou/uL (0.0-0.7); #Lymphocytes 0.9 thou/uL (1.20-3.40); #Monocytes 0.5 thou/uL (0.11-0.59); #Neutrophils 6.2 thou/uL (1.40-6.50); %Lymphocytes 11.7 % (21.0-51.0); %Monocytes 6.1 % (0.0-10.0); %Neutrophils 81.2 % (42.0-75.0); Hemoglobin 8.3 g/dL (14.0-18.0); Mean Corpuscular HGB CONC 33.3 g/dL (32.0-36.0); Mean Corpuscular Volume 84.1 fL (78.0-98.0); Mean Platelet Volume 7.1 fL (7.4-10.4); Platelet Count 227 thou/uL (130-400); RBC Distribution Width 14.6 % (11.5-14.5); Red Blood Cell (RBC) Count 2.96 mill/uL (4.70-6.10); White Blood Cell (WBC) Count 7.6 thou/uL (4.8-10.8)
[2017-10-13] MEDS: Ketorolac Tromethamine 30 MG/ML VIAL IVP SCH ×3 (05:02→17:17)
[2017-10-13] MEDS: Piperacillin/Tazobactam 3.375 GM, Admixture Fee 1 EACH in Sodium Chloride 0.9% 100 ML IVPB SCH ×2 (05:03→13:45)
[2017-10-13 05:16] LABS: Anion Gap 7 mmol/L (10-20); BUN (Urea Nitrogen) 10 mg/dL (8.4-25.7); Calc. Creatinine Clearance 82 mL/min (70-130); Calcium 7.6 mg/dL (7.8-10.44); Carbon Dioxide 26 mmol/L (23-31); Chloride 115 mmol/L (98-107); Estimated GFR-MDRD Greater than 90; Glucose 133 mg/dL (83-110); Potassium 3.3 mmol/L (3.5-5.1); Sodium 145 mmol/L (136-145)
[2017-10-13] MEDS: Famotidine 20 MG TAB PO SCH ×2 (09:00→21:01)
--- NOTE | 2017-10-13 09:59 | PRG ---
DATE OF SERVICE: 10/13/2017 SERVICE: Pulmonary Medicine. INTERVAL HISTORY: The patient is doing great from a respiratory standpoint. He indicates that his s trength is much improved. His mentation is better. He denies any chest pain, nausea, vomiting, feve rs or chills. PHYSICAL EXAMINATION: VITAL SIGNS: Afebrile, pulse 96, blood pressure 106/61, respirations 23, saturation 91% on room air. GENERAL: The patient is awake, alert, no apparent distress. LUNGS: Excellent air entry with no prolonged expiratory phase, wheezing, rhonchi or crackles. HEART: Normal rate, regular. ABDOMEN: Soft, nontender and nondistended. Bowel sounds are positive. MUSCULOSKELETAL: No cyanosis or clubbing. There is diffuse 2+ pitting throughout. : No Rice. NEUROLOGIC: Grossly nonfocal. LABORATORY DATA: WBC 7.6, hemoglobin 8.3, platelets 227,000. INR 1.3. Chloride 115, potassium 3.3. Basic metabolic profile is otherwise unremarkable. ASSESSMENT: 1. Acute blood loss anemia. 2. Lower gastrointestinal bleed secondary to diverticulosis. 3. Status post right colectomy, postop day #2. DISCUSSION AND PLAN: We will once again replace the potassium. I will introduce a dose of Lasix and discontinue our free water. The patient has been advanced to clear liquid diet. We will continue o ur mobilization efforts. I do believe the patient is stable for transition to the floor. I will fernando ck a hemoglobin tomorrow morning. Pulmonary will follow for now with additional questions or concern s moving forward.
--- NOTE | 2017-10-13 11:04 | PDOC.PN ---
- Subjective Encounter Start Date: 10/13/17 Encounter Start Time: 11:02 Subjective: alert, doing well - Objective Resuscitation Status: Resuscitation Status FULL:Full Resuscitation MAR Reviewed: Yes Vital Signs & Weight: Vital Signs (12 hours) Temp Pulse Resp Pulse Ox 10/13/17 08:00 98.1 F 95 13 10/13/17 03:00 98.6 F 10/13/17 00:00 97 10/12/17 23:37 95 Weight Weight 171 lb 11.841 oz Most Recent Monitor Data Heart Rate from ECG 118 NIBP 106/61 NIBP BP-Mean 91 Respiration from ECG 26 SpO2 91 I&O: 10/12/17 10/13/17 10/14/17 06:59 06:59 06:59 Intake Total 2728 2674 Output Total 1320 2045 100 Balance 1408 629 -100 Result Diagrams: 10/13/17 04:36 10/13/17 04:36 Additional Labs: Accuchecks 10/12/17 10/12/17 18:20 12:39 POC Glucose 147 H 138 H Phys Exam - Physical Examination Neck: no JVD Respiratory: clear to auscultation bilateral Cardiovascular: RRR, no significant murmur Gastrointestinal: soft, non-tender, no distention Musculoskeletal: no edema Dx/Plan (1) Rectal bleeding Code(s): K62.5 - HEMORRHAGE OF ANUS AND RECTUM Status: Acute (2) CAD (coronary artery disease), [place] coronary artery Code(s): I25.10 - ATHSCL HEART DISEASE OF [place] CORONARY ARTERY W/O ANG PCTRS Status: Acute Qualifiers: [place] vs. 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
[2017-10-13] MEDS: Famotidine/PF 20 mg/2ml Vial SLOW IVP SCH ×2 (13:46→21:01)
[2017-10-13] MEDS ORDERED: Furosemide 40 MG/4 ML VIAL SLOW IVP SCH (15:15)
[2017-10-13] MEDS: Carvedilol 3.125 MG TAB PO SCH (17:17)
[2017-10-13] MEDS: Piperacillin/Tazobactam 3.375 GM in Sodium Chloride 0.9% 100 ML IVPB SCH (21:00)
[2017-10-13] MEDS: Atorvastatin Calcium 40 MG TAB PO SCH (21:01)
--- NOTE | 2017-10-14 00:43 | PRG ---
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 The patient has recurrence of bleeding and was found to have bleeding from right side div erticular disease. He underwent right colectomy by Dr. Raya on Tuesday. He has done well since . He has not had any bleeding actively. He is feeling better. No abdominal pain, no nausea or vomiting. He is on a clear-liquid diet today. Plan will be to intermittently getting him on the ICU today. PHYSICAL EXAMINATION: GENERAL: He appears comfortable. VITAL SIGNS: Stable. Temperature 98.9 degrees Fahrenheit, pulse is 64, blood pressure 137/74. CARDIOVASCULAR SYSTEM AND LUNGS: Within normal limits. ABDOMEN: Abdomen is soft to palpate. Abdomen is nontender. He has had bowel sounds active. LABORATORY DATA: CBC: WBC down to 7600, hemoglobin down to 8.3, hematocrit 24.9, platelet count 227 ,000, polymorphs 81, lymphocytes 11. Serum chemistries: Sodium 145, potassium 3.3, chloride 115, bi carbonate 26, BUN is 10, creatinine 0.78. CLINICAL IMPRESSION: Acute gastrointestinal hemorrhage, status post right colectomy. He is doing we ll on postop. RECOMMENDATIONS: 1. Diet as tolerated as per Dr. Raya's recommendations. 2. Follow up labs.
[2017-10-14] MEDS: Ketorolac Tromethamine 30 MG/ML VIAL IVP SCH ×4 (00:45→17:31)
[2017-10-14] MEDS: Piperacillin/Tazobactam 3.375 GM in Sodium Chloride 0.9% 100 ML IVPB SCH ×4 (03:31→21:28)
[2017-10-14] MEDS: Famotidine 20 MG TAB PO SCH ×2 (09:14→21:28)
[2017-10-14] MEDS: Carvedilol 3.125 MG TAB PO SCH ×2 (09:15→16:43)
[2017-10-14] MEDS: Famotidine/PF 20 mg/2ml Vial SLOW IVP SCH ×2 (09:15→21:28)
[2017-10-14] MEDS: Furosemide 40 MG/4 ML VIAL SLOW IVP SCH (09:15)
--- NOTE | 2017-10-14 14:00 | PRG ---
DATE OF SERVICE: 10/14/2017 SERVICE: Pulmonary Medicine INTERVAL HISTORY: The patient is doing fine from a respiratory standpoint. He denies any current ch est pain, nausea, vomiting, fevers or chills. Otherwise, there has been no change to his condition. His strength is improving day by the day. His lower extremity swelling has vastly improved. Otherw ise, there has been no interval change to his condition. PHYSICAL EXAMINATION: VITAL SIGNS: Afebrile, pulse 84, blood pressure 111/69, respirations 14, saturation 95% on room air. GENERAL: The patient is awake, alert, no apparent distress. LUNGS: Excellent air entry. There is depending crackles, which are minimal. No prolonged expirator y phase or wheezing is present. HEART: Normal rate, regular. ABDOMEN: Soft, nontender, nondistended. Bowel sounds are positive. MUSCULOSKELETAL: No cyanosis or clubbing. There is 1+ pitting in the bilateral lower extremities, w hich is significantly improved. GENITOURINARY: No Rice. NEUROLOGIC: Grossly nonfocal. ASSESSMENT: 1. Acute blood loss anemia. 2. Lower gastrointestinal bleed secondary to diverticulosis. 3. Status post right hemicolectomy, postop day #3. DISCUSSION AND PLAN: The patient is doing absolutely fantastic from a respiratory standpoint. At thi s point, he is hemodynamically stable and has no further requirements for inpatient Critical Care opi nion. If his condition deteriorates, please give me a phone call.
[2017-10-14] MEDS: Atorvastatin Calcium 40 MG TAB PO SCH (21:28)
--- NOTE | 2017-10-14 23:20 | PDOC.PN ---
- Subjective Encounter Start Date: 10/14/17 Encounter Start Time: 18:00 Subjective: nsg notes rev, darrell ovn, pt no new c/o, was very happy he was able to -: tolerate dinner and reports he has been ambulating with the aid of the walk -: er and is excited about possibly going home tomorrow - Objective Resuscitation Status: Resuscitation Status FULL:Full Resuscitation Vital Signs & Weight: Vital Signs (12 hours) Temp Pulse Resp BP BP Pulse Ox 10/14/17 20:00 98.6 F 83 18 127/74 96 10/14/17 14:58 98.5 F 81 18 108/68 96 10/14/17 12:58 98.5 F 81 18 108/68 96 Weight Weight 171 lb 11.841 oz Most Recent Monitor Data Heart Rate from ECG 97 NIBP 127/69 NIBP BP-Mean 87 Respiration from ECG 25 SpO2 90 I&O: 10/13/17 10/14/17 10/15/17 06:59 06:59 06:59 Intake Total 2674 650 200 Output Total 2045 850 1100 Balance 629 200 900 Result Diagrams: 10/13/17 04:36 10/13/17 04:36 Additional Labs: Accuchecks 10/14/17 10/14/17 10/14/17 17:44 12:43 06:27 POC Glucose 119 H 130 H 113 H 10/14/17 00:23 POC Glucose 141 H Phys Exam - Physical Examination Constitutional: NAD lying in hospital bed HEENT: moist MMs, sclera anicteric EoMI Respiratory: no wheezing, no rales, no rhonchi, clear to auscultation bilateral Cardiovascular: RRR, no significant murmur, no rub Gastrointestinal: soft, non-tender, no distention, positive bowel sounds Musculoskeletal: pulses present, edema present 1+ b/l LE Edema Neurological: moves all 4 limbs ambulates w/ walker Psychiatric: normal affect, A&O x 3 Dx/Plan - Plan (1) Rectal bleeding s/p right open hemicolectomy w/ small bowel resection apprec surg c/s apprec GI c/s tolerated solid dinner (fish) (2) CAD (coronary artery disease), [place] coronary artery stable (3) DM type 2 (diabetes mellitus, type 2) stable (4) Anemia due to blood loss, acute improving stable H/H, hemodynamically stable d/w pt at bedside Review of Systems - Medications/Allergies Allergies/Adverse Reactions: Allergies Allergy/AdvReac Type Severity Reaction Status Date / Time mineral oil [Mineral Oil] Allergy Intermediate Hives Verified 10/10/17 05:39 morphine Allergy Intermediate Verified 10/10/17 05:39 Medications: Current Medications Acetaminophen (Tylenol) 650 mg PO Q4H PRN PRN Reason: Headache/Fever or Pain Albuterol/Ipratropium (Duoneb) 3 ml NEB Q4H PRN PRN Reason: Wheezing Atorvastatin Calcium (Lipitor) 40 mg PO HS [facility] Last Admin: 10/14/17 21:28 Dose: 40 mg Carvedilol (Coreg) 3.125 mg PO BID-[facility] Last Admin: 10/14/17 16:43 Dose: Not Given Famotidine (Pepcid) 20 mg PO Q12HR [facility] Last Admin: 10/14/17 21:28 Dose: 20 mg Famotidine (Pepcid) 20 mg SLOW IVP Q12HR [facility] Last Admin: 10/14/17 21:28 Dose: Not Given Fentanyl (Sublimaze) 25 mcg SLOW IVP Q2H PRN PRN Reason: Mild-Moderate Pain (1-5) Last Admin: 10/11/17 19:40 Dose: 25 mcg Furosemide (Lasix) 40 mg SLOW IVP DAILY [facility] Last Admin: 10/14/17 09:15 Dose: 40 mg Hydralazine HCl (Apresoline) 10 mg SLOW IVP Q4H PRN PRN Reason: SBP > 170 or DBP > 100 Piperacillin Sod/Tazobactam (Sod 3.375 gm/ Sodium Chloride) 100 mls @ 200 mls/ hr IVPB 0300,0900,1500,2100 [facility] Last Admin: 10/14/17 21:28 Dose: 100 mls Insulin Human Regular (Humulin R) 0 units SC .MODERATE SLIDING SC PRN PRN Reason: Moderate Correctional Scale Ondansetron HCl (Zofran Odt) 4 mg PO Q6H PRN PRN Reason: Nausea/Vomiting Ondansetron HCl (Zofran) 4 mg IVP Q4H PRN PRN Reason: Nausea/Vomiting Promethazine HCl (Phenergan) 12.5 mg IM Q4H PRN PRN Reason: Nausea/Vomiting Sodium Chloride (Flush - Normal Saline) 10 ml IVF Q12HR [facility] Last Admin: 10/14/17 21:57 Dose: 10 ml Sodium Chloride (Flush - Normal Saline) 10 ml IVF PRN PRN PRN Reason: Saline Flush
[2017-10-15] MEDS: Piperacillin/Tazobactam 3.375 GM in Sodium Chloride 0.9% 100 ML IVPB SCH ×3 (03:17→15:32)
[2017-10-15 06:59] LABS: #Eosinphils 0.2 thou/uL (0.0-0.7); #Lymphocytes 1.1 thou/uL (1.20-3.40); #Monocytes 0.3 thou/uL (0.11-0.59); #Neutrophils 3.2 thou/uL (1.40-6.50); %Basophils 0.4 % (0.0-1.0); %Eosinophils 4.4 % (0.0-10.0); %Lymphocytes 23.5 % (21.0-51.0); %Monocytes 6.5 % (0.0-10.0); %Neutrophils 65.2 % (42.0-75.0); Hemoglobin 8.4 g/dL (14.0-18.0); Mean Corpuscular HGB CONC 32.9 g/dL (32.0-36.0); Mean Corpuscular Hemoglobin 27.7 pg (27.0-31.0); Mean Corpuscular Volume 84.1 fL (78.0-98.0); Mean Platelet Volume 6.3 fL (7.4-10.4); Platelet Count 284 thou/uL (130-400); RBC Distribution Width 14.6 % (11.5-14.5); Red Blood Cell (RBC) Count 3.05 mill/uL (4.70-6.10); White Blood Cell (WBC) Count 4.9 thou/uL (4.8-10.8)
[2017-10-15 07:18] LABS: Anion Gap 8 mmol/L (10-20); BUN (Urea Nitrogen) 10 mg/dL (8.4-25.7); Calc. Creatinine Clearance 86 mL/min (70-130); Calcium 7.9 mg/dL (7.8-10.44); Carbon Dioxide 29 mmol/L (23-31); Chloride 111 mmol/L (98-107); Estimated GFR-MDRD Greater than 90; Glucose 134 mg/dL (83-110); Potassium 3.1 mmol/L (3.5-5.1); Sodium 145 mmol/L (136-145)
[2017-10-15] MEDS: Famotidine 20 MG TAB PO SCH (08:46)
[2017-10-15] MEDS: Carvedilol 3.125 MG TAB PO SCH ×2 (08:46→16:29)
[2017-10-15] MEDS: Furosemide 40 MG/4 ML VIAL SLOW IVP SCH (08:47)
[2017-10-15] MEDS ORDERED: Potassium Chloride 20 MEQ TAB PO SCH (09:00)
[2017-10-15 16:07] VITALS: BP 118/65; TEMP 99.1
--- NOTE | 2017-10-16 00:27 | DIS ---
DATE OF ADMISSION: 10/10/2017 DATE OF DISCHARGE: 10/15/2017 CONSULTANTS: 1. Pulmonology. 2. GI, Dr. Jenkins. 3. Cardiology, Dr. Perez. 4. General Surgery, Dr. Raya. PROCEDURES PERFORMED: Right hemicolectomy and small bowel resection performed on 10/11/2017. MEDICATIONS: Reconciled at discharge. NEW MEDICATION: 1. Augmentin 875 one tablet b.i.d. for 5 days, 2. Aspirin 81 mg once a day. DISCONTINUED MEDICATIONS: 1. Plavix, discontinued due to gastrointestinal bleed. 2. Altace is being held due to blood pressures that are low normal. 3. Nitroglycerin, as the patient reports he is not requiring this. MEDICATIONS TO CONTINUE: 1. Tylenol 1000 mg at bedtime as needed for pain. 2. Atorvastatin 40 mg daily. 3. Carvedilol 3.125 mg b.i.d. 4. Pantoprazole 40 mg once daily. 5. Torsemide 20 mg daily as needed. 6. Benadryl 25 mg at night. 7. Metformin 500 mg daily. 8. Tramadol 50 mg every 6 hours as needed. FOLLOWUP: 1. Follow up with Dr. Perez in 2-3 weeks. Please call for an appointment. 2. Follow up with Dr. Raya. Please call on Tuesday for an appointment. 3. Follow up with the primary care provider within 2-3 weeks to review this hospitalization and address any other health concerns. FINAL DIAGNOSES: 1. Lower gastrointestinal bleed, now status post right hemicolectomy, extensive lysis of adhesions, small bowel resection, and repair of enterotomy. 2. Coronary artery disease with history of coronary artery bypass grafting. 3. Diabetes mellitus type 2. 4. Dyslipidemia. 5. Anemia secondary to acute blood loss, status post transfusion. 6. History of nephrolithiasis. 7. Hypokalemia, mild. HISTORY OF PRESENT ILLNESS: Mr. Mcclellan is an 82-year-old male, who presented to the emergency room after developing bright red blood per rectum. He had three episodes that seemed to stop; however, followed by 2-3 more episodes with increasing clots and some nausea and vomiting. He presented to the emergency room, was transfused, transferred to the ICU, and Hospitalist called for admission. HOSPITAL COURSE: The patient was monitored by Gastroenterology. In total, he was transfused 7 units of packed red blood cells, 2 units of FFP, and 1 unit of platelets. Because of the persistence of bleeding, a nuclear medicine scan was performed, which showed bleeding in the ascending colon, at which point, General Surgery was consulted. The patient was taken to the operating room on the with the above procedure performed. The patient has done well postoperatively. He was on Zosyn for 5 days, will complete antibiotics with Augmentin per General Surgery for the next 5 days. He is ambulating, passing flatus, tolerating regular diet, and complains of minimal pain. He does meet criteria for discharge to home. His metformin has been held and his blood sugars have been in the 100s. His blood pressure has ranged from the 100 to as high as 130s. He was continued on his beta stas; however, his SURYA inhibitor was held due to a normal blood pressure. He was also continued on a statin. The patient was followed by Cardiology while here and due to lower extremity edema, was diuresed with IV Lasix. This has improved. He does not have any respiratory compromise from this. He will transition back to his oral torsemide to take it as needed until he is back to normal. In discussion with Cardiology and General Surgery, the patient can resume low- dose aspirin. The Plavix will be held. His Altace will also be held; monitoring his blood pressures and in followup with Dr. Perez, his hot mix operator. The patient overall was doing well. PHYSICAL EXAMINATION: On day of discharge, VITAL SIGNS: Temperature 99.1, pulse 80, respirations 18, saturations 96% on room air, blood pressure 118/65. GENERAL: Awake, alert, responsive, in no apparent distress. LUNGS: Clear to auscultation bilateral. HEART: Normal S1, S2. Regular rate and rhythm. No audible murmurs. ABDOMEN: Soft. Present bowel sounds. Nontender, nondistended. EXTREMITIES: He has some mild pitting edema on the left lower extremity, none on the right. [place] FINDINGS AND TEST RESULTS: The patient was transfused 7 units of packed red blood cells, 2 units of FFP, and 1 unit of platelets in total. Labs: Renal panel today: 145, 3.1, 111, 29, 10, 0.74, 134. LFTs on admission , 10/10/2017: Total bilirubin 0.8, AST 11, ALT 10, alkaline phosphatase 57, total protein 4.6, albumin 2.8. CBC: 4.9, 8.4, 25.6, 284. His surgical pathology from 10/11/2017 shows diverticular disease with acute diverticulitis and focal active colitis with associated serosal adhesions, appendix with fibrous obliteration, margins of resection are viable and free of active inflammation. Nuclear medicine study on 10/11/2017 shows a positive GI bleeding scan in the right upper quadrant, which could indicate a focus of bleeding in the ascending colon. DIET: Heart healthy. ACTIVITY: As tolerated. I reviewed with patient and his , the medications and changes, the return for care precautions, and the followup instructions. They demonstrate understanding and agree. TIME SPENT: Total time coordinating discharge is 35 minutes. DISCHARGE DISPOSITION: Home. CODE STATUS: FULL. MTDD
--- NOTE | 2017-10-17 12:42 | PQF ---
SERGEY PIMENTEL JOHN A JR MD [id number] CLINICAL DOCUMENTATION CLARIFICATION FORM: POST DISCHARGE DATE: 10/17/2017 ATTN: Dr. Raya Please exercise your independent, professional judgment in responding to the clarification form. Clinical indicators are provided on the bottom of this form for your review Please check appropriate box(s): In the description of the operative procedure a small bowel enterotomy was noted by the surgeon. If possible would you please further clarify if this was: [ x ] Incidental occurrence inherent in the surgical procedure [ ] Complication of the procedure [ ] Other (please specify) [ ] Unable to determine For continuity of documentation, please document condition throughout progress notes and discharge summary. Thank You. CLINICAL INDICATORS - SIGNS / SYMPTOMS / LABS Per 10/11 operative report: In the pelvis, there was a small bowel that had also looped and was a potential internal hernia worse, this was taken down sharply with Metzenbaum scissors and an enterotomy occurred at this point that was closed with 3-0 Vicryl. suture. RISK FACTORS Per 10/11 operative note: Extensive lysis of small bowel adhesions. TREATMENTS: Per 10/11 operative note: Open right hemicolectomy, extensive lysis of adhesions , small bowel resection, repair of enterotomy. (This form is maintained as a part of the permanent medical record) 2014 [employer]. All Rights Reserved Beatris [email or web address] [phone] MTDD
== END 2017-10-15 18:31 | disposition home or self-care (01) | DRG 330 ==
LOC: ERS 00:47 → CCU 03:23 → SJJU 10-13 14:23 → CCU 10-13 14:51 → SJJU 10-13 15:39
PROVIDERS: ADMIT Internal Medicine Infectious Disease; ATTEND Internal Medicine Infectious Disease
PROC: 0DJD8ZZ Inspection of Lower Intestinal Tract, Via Natural or Artificial Opening Endoscopic (ICD-10-PCS; 2017-10-10)
PROC: 0DJ08ZZ Inspection of Upper Intestinal Tract, Via Natural or Artificial Opening Endoscopic (ICD-10-PCS; 2017-10-10)
PROC: 30233N1 Transfusion of Nonautologous Red Blood Cells into Peripheral Vein, Percutaneous Approach (ICD-10-PCS; 2017-10-10)
PROC: 0DTF0ZZ Resection of Right Large Intestine, Open Approach (ICD-10-PCS; principal; 2017-10-11)
PROC: 0DN80ZZ Release Small Intestine, Open Approach (ICD-10-PCS; 2017-10-11)
PROC: 0DB80ZZ Excision of Small Intestine, Open Approach (ICD-10-PCS; 2017-10-11)
PROC: 0DQ80ZZ Repair Small Intestine, Open Approach (ICD-10-PCS; 2017-10-11)
PROC: 30233K1 Transfusion of Nonautologous Frozen Plasma into Peripheral Vein, Percutaneous Approach (ICD-10-PCS; 2017-10-11)
PROC: 30233R1 Transfusion of Nonautologous Platelets into Peripheral Vein, Percutaneous Approach (ICD-10-PCS; 2017-10-11)
DX: K57.31 Diverticulosis of large intestine without perforation or abscess with bleeding (principal); D62 Acute posthemorrhagic anemia; I25.10 Atherosclerotic heart disease of native coronary artery without angina pectoris; E11.9 Type 2 diabetes mellitus without complications; K64.9 Unspecified hemorrhoids; K62.1 Rectal polyp; K63.5 Polyp of colon; K44.9 Diaphragmatic hernia without obstruction or gangrene; E87.6 Hypokalemia; E83.42 Hypomagnesemia; Z88.5 Allergy status to narcotic agent; Z79.84 Long term (current) use of oral hypoglycemic drugs; Z79.02 Long term (current) use of antithrombotics/antiplatelets; Z79.82 Long term (current) use of aspirin; Z79.899 Other long term (current) drug therapy; Z95.1 Presence of aortocoronary bypass graft; Z96.653 Presence of artificial knee joint, bilateral
CPT/HCPCS: 36415; 36416; 36430; 78278; 80048; 80053; 83735; 85025; 85610; 85730; 86850; 86900; 86901; 88307; 93005; A4216; A9604; G8978-GP-CL; G8979-GP-CJ; J0131; J0360; J1100; J1885; J1940; J2001; J2250; J2370; J2405; J2543; J2550; J2704; J3010; J3475; J3480; J7050; P9016; P9035; P9045; P9059; S0028

== ENCOUNTER 2018-04-10 16:07 | Inpatient (IN) | payer MEDICARE, BC, OTHER ==
[~2018-04-10 16:07] MED LIST: Iopamidol 370 76% 100 ML VIAL ONE
--- NOTE | 2018-04-10 16:50 | CT ---
NONCONTRAST CT HEAD: Date: 04/10/18 HISTORY: Vision loss, fall while on blood thinners. COMPARISON: None available. FINDINGS: There is diminished attenuation seen throughout the periventricular white matter, which is nonspecifi c but likely reflective of chronic small vessel ischemic changes. Low density areas is seen within th e right occipital lobe in the distribution of the right posterior cerebral artery with focal effaceme nt suggestive of an acute infarction. No additional acute cortical infarction is visualized. Low dens ity focus seen in the right cerebellar hemisphere related to remote infarction. There is diffuse cerebral volume loss. The ventricular system is normal in size, shape, and position. The visualized paranasal sinuses and mastoid air cells are clear. Calvarial structures are intact. IMPRESSION: 1. 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 2. Chronic small vessel ischemic changes and cerebral volume loss. 3. Remote infarction right cerebellar hemisphere. 4. No intraparenchymal or extra-axial hemorrhage is seen. Above findings discussed with Dr. Mccullough in the emergency department on 04/10/18 at 1632 hours. CODE CR. POS: SARA
[2018-04-10 16:58] LABS: #Lymphocytes 1.4 thou/uL (1.20-3.40); #Monocytes 0.5 thou/uL (0.11-0.59); #Neutrophils 3.5 thou/uL (1.40-6.50); %Basophils 0.3 % (0.0-1.0); %Eosinophils 0.6 % (0.0-10.0); %Lymphocytes 25.9 % (21.0-51.0); %Monocytes 9.3 % (0.0-10.0); %Neutrophils 63.9 % (42.0-75.0); Hemoglobin 9.3 g/dL (14.0-18.0); Mean Corpuscular Hemoglobin 18.5 pg (27.0-31.0); Mean Platelet Volume 11.2 fL (7.4-10.4); Platelet Count 379 thou/uL (130-400); RBC Distribution Width 18.7 % (11.5-14.5); Red Blood Cell (RBC) Count 5.02 mill/uL (4.70-6.10); White Blood Cell (WBC) Count 5.4 thou/uL (4.8-10.8)
[2018-04-10 17:01] LABS: INR-International Normal Ratio 1.1; Prothrombin Time 14.5 SEC (12.0-14.7)
[2018-04-10 17:02] LABS: PTT 34.1 SEC (22.9-36.1)
[2018-04-10 17:21] LABS: Anisocytosis MODERATE=16-30 cells (100X) (0-5/hpf); Hypochromia SLIGHT = 6-15 cells (100X) (0-5/hpf); Large Platelets SLIGHT; MDiff Complete? YES; Microcytosis SLIGHT = 6-15 cells (100X) (0-5/hpf); Ovalocytes SLIGHT = 2-5 cells (100X) (0-1/hpf); Platelet Morphology Comment Appears Adequate; Poikilocytosis SLIGHT = 6-15 cells (100X) (0-5/hpf); Polychromasia MODERATE = 3-4 cells (100X) (0-2/hpf); Target Cells SLIGHT = 2-5 cells (100X) (0-1/hpf); Tear Drops SLIGHT = 2-5 cells (100X) (0-1/hpf)
[2018-04-10 17:23] LABS: ALT (SGPT) 9 U/L (8-55); AST (SGOT) 10 U/L (5-34); Albumin 3.9 g/dL (3.4-4.8); Alkaline Phosphatase 72 U/L (40-150); Anion Gap 14 mmol/L (10-20); BUN (Urea Nitrogen) 9 mg/dL (8.4-25.7); Bilirubin, Total 1.4 mg/dL (0.2-1.2); Calc. Creatinine Clearance 0 mL/min (70-130); Calcium 9.3 mg/dL (7.8-10.44); Carbon Dioxide 25 mmol/L (23-31); Chloride 109 mmol/L (98-107); Estimated GFR-MDRD 73; Globulin 2.5 g/dL (2.4-3.5); Glucose 149 mg/dL (83-110); Protein, Total 6.4 g/dL (5.8-8.1); Sodium 144 mmol/L (136-145)
--- NOTE | 2018-04-10 18:40 | CT ---
CT ANGIOGRAM HEAD WITH CONTRAST: CT ANGIOGRAM NECK WITH CONTRAST: 04/10/2018 HISTORY: An 83-year-old male with acute right occipital infarction causing vision loss. TECHNIQUE: IV injection of 100 mL of Isovue-370. Arterial bolus chasing technique scan performed from aortopulmonic window to vertex of head. Coronal and sagittal 3D MIP reconstructions. FINDINGS: There is abruption truncation of the contrast material at the junction between the P2 and P3 segments of the right SALES OPERATIONS MANAGER, just lateral to the right quadrigeminal cistern. The rest of the P2 segment and t he P1 segment are normal. No other occlusion or high-grade stenosis identified involving the anterio r and posterior circulation of the [place]. High-grade stenosis at the origin of the right vertebral artery from the subclavian artery, by calcif ied plaque. There is mild calcified plaque but no high-grade stenosis involving the bilateral caroti d bulbs. No high-grade stenosis identified involving the bilateral subclavian, the bilateral common carotid, the bilateral internal carotid, or the brachiocephalic, arteries. No high-grade stenosis in volving the rest of the cervical vertebral arteries. There are bilateral pleural effusions that reac h the lung apices. There is a moderate-sized region of cytotoxic edema in the right occipital lobe, encroaching upon the posterior aspect of the right posterior parietal lobe. IMPRESSION: 1. Acute occlusion due to thrombosis or thromboembolism, involving the right posterior cerebral daniel ry, at the junction between the P2 and P3 segments. 2. 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 3. Bilateral moderate to large pleural effusions. POS: SARA
[2018-04-10] MEDS ORDERED: Acetaminophen 500 MG TAB ONE ×2 (19:25→19:26)
[2018-04-10 20:19] LABS: Troponin I 0.033 ng/mL (< 0.028)
[2018-04-10 23:29] LABS: Troponin I 0.026 ng/mL (< 0.028)
[2018-04-11 02:27] VITALS: BMI 23.6
[2018-04-11] MEDS ORDERED: Senokot S 8.6-50 MG TAB PO PRN (02:58)
[2018-04-11] MEDS ORDERED: Calcium Carbonate 500 MG ChewTAB PO PRN (02:58)
[2018-04-11] MEDS ORDERED: Zolpidem Tartrate 5 MG TAB PO PRN (02:58)
[2018-04-11] MEDS ORDERED: Acetaminophen 325 MG TAB PO PRN (02:58)
[2018-04-11] MEDS ORDERED: Bisacodyl 10 MG SUPP PR PRN (02:58)
[2018-04-11] MEDS ORDERED: Bisacodyl 5 MG TAB PO PRN (02:58)
[2018-04-11] MEDS ORDERED: Sodium Chloride 0.9% 1,000 ML IV SCH (03:00)
[2018-04-11] MEDS ORDERED: traMADol HCl 50 MG TAB PO PRN (03:03)
[2018-04-11] MEDS ORDERED: Dextrose 5% in Water 1,000 ML IV PRN (03:04)
[2018-04-11] MEDS ORDERED: HumaLOG 300 UNITS/3 ML VIAL SC PRN ×2 (03:04)
[2018-04-11] MEDS ORDERED: Dextrose 50% Abboject 50 ML SYRINGE SLOW IVP PRN (03:04)
[2018-04-11 05:52] LABS: #Eosinphils 0.1 thou/uL (0.0-0.7); #Lymphocytes 1.7 thou/uL (1.20-3.40); #Monocytes 0.4 thou/uL (0.11-0.59); #Neutrophils 2.8 thou/uL (1.40-6.50); %Basophils 0.7 % (0.0-1.0); %Lymphocytes 33.6 % (21.0-51.0); %Monocytes 8.7 % (0.0-10.0); %Neutrophils 55.1 % (42.0-75.0); Hemoglobin 7.8 g/dL (14.0-18.0); Mean Corpuscular HGB CONC 27.9 g/dL (32.0-36.0); Mean Corpuscular Hemoglobin 18.4 pg (27.0-31.0); Platelet Count 324 thou/uL (130-400); RBC Distribution Width 18.3 % (11.5-14.5); Red Blood Cell (RBC) Count 4.22 mill/uL (4.70-6.10); White Blood Cell (WBC) Count 5.1 thou/uL (4.8-10.8)
[2018-04-11 06:06] LABS: Anion Gap 12 mmol/L (10-20); BUN (Urea Nitrogen) 7 mg/dL (8.4-25.7); Calc. Creatinine Clearance 79 mL/min (70-130); Calcium 8.7 mg/dL (7.8-10.44); Carbon Dioxide 24 mmol/L (23-31); Cardiac Risk 2.4 (Less than 4.5); Chloride 110 mmol/L (98-107); Estimated GFR-MDRD Greater than 90; Glucose 105 mg/dL (83-110); Potassium 3.4 mmol/L (3.5-5.1); Sodium 143 mmol/L (136-145)
[2018-04-11] MEDS: Famotidine 20 MG TAB PO SCH ×2 (09:18→21:10)
[2018-04-11] MEDS: Aspirin 81 mg Enteric Coated Tablet PO SCH (09:18)
[2018-04-11] MEDS: Enoxaparin Sodium 40 MG/0.4 ML SYRINGE SC SCH (09:19)
[2018-04-11] MEDS: Famotidine/PF 20 mg/2ml Vial SLOW IVP SCH ×2 (09:19→21:11)
--- NOTE | 2018-04-11 11:41 | MRI ---
MRI BRAIN WITHOUT CONTRAST: HISTORY: Posterior circulation occlusion. CVA. COMPARISON: None. CORRELATION: CT angiogram head and neck from 04/10/2018. FINDINGS: No acute hemorrhage on the axial gradient echo sequence. The calvarium has a normal marrow signal intensity. Midline brain parenchymal structures are unremar kable. At the level of the [place], arterial flow voids are maintained on the T2 sequence. There is lack of flow void in the right P2 segment/P3 segment. Evaluation is limited on this exam. In the right FIBER DESIGN ENGINEER distribution, there is sulcal effacement, as well as T2 and STIR hyperintensity. T here is associated restricted diffusion. Additional T2 and FLAIR white matter hyperintensities are i dentified, which do not have restricted diffusion. There is mucosal disease of the ethmoid air cells. Adequate mastoid air cell aeration. Mild mucosal disease of the maxillary sinuses. Bilateral ocular lens implants are noted. IMPRESSION: 1. Acute right posterior cerebral artery distribution infarct. 2. Age appropriate atrophy. There are chronic small vessel ischemic changes of the white matter. POS: [facility]
--- NOTE | 2018-04-11 16:44 | PDOC.PN ---
- Subjective Encounter Start Date: 04/11/18 Encounter Start Time: 16:35 Subjective: f/u for acute ischemic R MERCANTILE AGENT CVA with thrombus and vision loss. Tx with ASA -: and Lipitor and currently vision markedly improved. No CASTANEDA or unilateral ext -: weakness, no dysphagia or speech problems. - Objective Resuscitation Status - Order Detail: 04/11/18 02:58 Resuscitation Status Routine Resuscitation Status: FULL: Full Resuscitation MAR Reviewed: Yes Vital Signs & Weight: Vital Signs (12 hours) Temp Pulse Pulse Pulse Resp BP BP 04/11/18 15:50 98.7 F 84 20 04/11/18 11:56 98.8 F 84 20 04/11/18 11:26 89 106 H 124/70 147/73 H 04/11/18 11:22 89 106 H 124/70 147/73 H 04/11/18 08:00 98.5 F 85 20 BP Pulse Ox 04/11/18 15:50 119/55 L 96 04/11/18 11:56 124/70 97 04/11/18 11:26 04/11/18 11:22 04/11/18 08:00 117/64 98 Weight Weight 165 lb I&O: 04/10/18 04/11/18 04/12/18 06:59 06:59 06:59 Intake Total 960 Balance 960 Result Diagrams: 04/11/18 04:21 04/11/18 04:21 Additional Labs: Accuchecks 04/11/18 04/11/18 10:40 05:27 POC Glucose 147 H 110 Laboratory Tests 04/10/18 04/10/18 16:43 16:43 Hgb 9.3 L MCV 66.0 L Potassium 4.0 Radiology Reviewed by me: Yes (MRI Brain - R MERCANTILE AGENT ischemic CVA) EKG Reviewed by me: Yes (Tele - SR) Phys Exam - Physical Examination Constitutional: NAD HEENT: PERRLA, sclera anicteric, oral pharynx no lesions Neck: no nodes, no JVD, supple, full ROM Respiratory: no wheezing, no rales, no rhonchi, clear to auscultation bilateral S1, S2 Cardiovascular: RRR, no significant murmur, no rub, gallop Gastrointestinal: soft, non-tender, no distention, positive bowel sounds Musculoskeletal: no edema, pulses present Neurological: normal sensation, moves all 4 limbs Psychiatric: A&O x 3 Skin: normal turgor, cap refill <2 seconds Dx/Plan (1) Ischemic cerebrovascular accident (CVA) Code(s): I63.9 - CEREBRAL INFARCTION, UNSPECIFIED Status: Acute Comment: R MERCANTILE AGENT distribution with vision loss, start Plavix, Echo pending, continue Lipitor (2) Vision loss Code(s): H54.7 - UNSPECIFIED VISUAL LOSS Status: Acute Comment: Improved per pt report, continue mgmt as outlined above (3) Microcytic anemia Code(s): D50.9 - IRON DEFICIENCY ANEMIA, UNSPECIFIED Status: Chronic Comment : Check Stool guaiac, repeat CBC in am (4) DM type 2 (diabetes mellitus, type 2) Status: Chronic Qualifiers: Diabetes mellitus [facility] insulin use: without [facility] use Diabetes mellitus complication status: without complication Qualified Code(s): E11.9 - Type 2 diabetes mellitus without complications Comment: ISS, continue Metformin 1000mg BID, accuchecks - Plan PT/OT, manager social media, out of bed/ambulate, DVT proph w/SCDs Stable overall -: Start Plavix 75mg daily -: Hold ASA -: Continue Lipitor 80mg HS -: Echo pending * Likely home in 24h
[2018-04-11] MEDS ORDERED: diphenhydrAMINE 25 MG CAP PO SCH (21:00)
[2018-04-11] MEDS ORDERED: Acetaminophen 500 MG TAB PO SCH (21:00)
[2018-04-11] MEDS ORDERED: Atorvastatin Calcium 40 MG TAB PO SCH (21:00)
--- NOTE | 2018-04-12 00:19 | CON ---
DATE OF CONSULTATION: 04/11/2018 IMPRESSION: 1. Right occipital lobe stroke likely secondary to thromboembolic event. 2. Right posterior cerebral artery occlusion. 3. Right vertebral artery stenosis. 4. Aspirin failure. 5. History of gastrointestinal bleed secondary to diverticulosis. 6. Anemia. PLAN: 1. Repeat trial of Plavix. 2. Continue aspirin and statin. HISTORY OF PRESENT ILLNESS: Mr. Mcclellan is an 83-year-old gentleman who came in with complaints of acute headache and vision distortion on the right. His initial CT scan of the brain did not show any evidence of hemorrhage. His CT angiogram was as noted above. Followup MRI shows evidence of acute infarction in the right posterior cerebral artery territory. His echocardiogram is pending. LABORATORY STUDIES: Show a white blood cell count of 5.4, hemoglobin 9.3. Coags were in normal limits and electrolytes were unremarkable with a lipid ratio of 2.4. PAST MEDICAL HISTORY: Otherwise unremarkable. ALLERGIES: 1. MINERAL OIL. 2. MORPHINE. SOCIAL HISTORY: He is . Does not smoke or abuse alcohol. FAMILY HISTORY: Noncontributory. MEDICATIONS: Medication list was reviewed. REVIEW OF SYSTEMS: A 10 organ system review were unremarkable. PHYSICAL EXAMINATION: VITAL SIGNS: Blood pressure 119/55, pulse 84, respirations 20, temperature 98.7. HEENT: Pupils are equal and reactive. Conjunctiva clear. Oropharynx clear. NECK: Supple. EXTREMITIES: No cyanosis. NEUROLOGIC: He is alert and cooperative. Speech is fluent and clear. There is no notable visual field deficit is actively elicited. His exam was otherwise nonfocal including motor, cerebellar, and sensory function. EKG shows normal sinus rhythm. SUMMARY: An 83-year-old gentleman with an acute occipital lobe infarct with improving symptoms. We can add Plavix and hopefully there will not be any recurrent bleeding. Aggrenox would be another option. I would be happy to follow up with him as an outpatient. Job ID: [id number]
[2018-04-12 06:33] LABS: Anion Gap 10 mmol/L (10-20); BUN (Urea Nitrogen) 7 mg/dL (8.4-25.7); Calc. Creatinine Clearance 79 mL/min (70-130); Calcium 8.6 mg/dL (7.8-10.44); Carbon Dioxide 26 mmol/L (23-31); Chloride 110 mmol/L (98-107); Estimated GFR-MDRD Greater than 90; Glucose 110 mg/dL (83-110); Potassium 3.3 mmol/L (3.5-5.1); Sodium 143 mmol/L (136-145)
[2018-04-12 06:35] LABS: Hemoglobin 7.8 g/dL (14.0-18.0); Hypochromia SLIGHT = 6-15 cells (100X) (0-5/hpf); Lymphocytes 24 % (21-51); MDiff Complete? YES; Mean Corpuscular HGB CONC 28.1 g/dL (32.0-36.0); Mean Corpuscular Hemoglobin 18.5 pg (27.0-31.0); Mean Platelet Volume 10.9 fL (7.4-10.4); Neutrophil 76 % (42-75); Platelet Count 340 thou/uL (130-400); Platelet Morphology Comment Appears Adequate; RBC Distribution Width 18.8 % (11.5-14.5); Red Blood Cell (RBC) Count 4.22 mill/uL (4.70-6.10)
[2018-04-12] MEDS ORDERED: metFORMIN 500 MG TAB PO SCH (08:00)
[2018-04-12] MEDS: Aspirin 81 mg Enteric Coated Tablet PO SCH (08:36)
[2018-04-12] MEDS: Enoxaparin Sodium 40 MG/0.4 ML SYRINGE SC SCH (08:36)
[2018-04-12] MEDS: Famotidine 20 MG TAB PO SCH (08:37)
[2018-04-12] MEDS: Famotidine/PF 20 mg/2ml Vial SLOW IVP SCH (08:37)
[2018-04-12] MEDS ORDERED: Torsemide 20 MG TAB PO SCH (09:00)
[2018-04-12] MEDS ORDERED: Clopidogrel Bisulfate 75 MG TAB PO SCH ×2 (09:30)
[2018-04-12 16:09] VITALS: BP 137/87; TEMP 98.9
--- NOTE | 2018-04-13 05:29 | DIS ---
DATE OF ADMISSION: 04/10/2018 DATE OF DISCHARGE: 04/12/2018 DISCHARGE DIAGNOSES: 1. Acute ischemic right posterior cerebral artery, cerebrovascular accident, likely thromboembolic phenomenon. 2. Vision loss secondary to #1, improved. 3. Chronic microcytic anemia. 4. Diabetes mellitus type 2, stable. 5. Dyslipidemia. CONSULTATIONS: Dr. Jose Ramirez with Neurology Service. PERTINENT LAB AND X-RAY FINDINGS: Potassium ranged between 3.3 to 4.0. Troponin I ranged between 0.026 to 0.033. Total cholesterol 73, triglycerides 54, HDL 31, LDL 31. CBC showed a hemoglobin ranging between 7.8 to 9.3, MCV 66. PT 14.5, INR 1.1, PTT 34.1. CT of the brain without contrast dated 04/10/2018 showed acute infarction in the right posterior cerebral artery. Chronic small-vessel ischemic changes noted. CT angiogram of the head and neck showed acute occlusion due to thrombosis or thromboembolism of the right posterior cerebral artery at the junction between the P2 and P3 segments. High-grade chronic stenosis at the origin of the right vertebral artery. MRI of the brain dated 04/11/2018 showed acute right posterior cerebral artery distribution infarct. 2D transthoracic echocardiogram dated 04/12/2018, pending at the time of this dictation. HOSPITAL COURSE: The patient was admitted to the Stroke Unit after initially presenting with vision loss. The patient underwent extensive evaluation including neuro imaging showing evidence of an acute right posterior cerebral artery infarct affecting the occipital lobe with subsequent vision loss. The patient was placed on aspirin and evaluated by the Neurology Service. MRI imaging did confirm evidence of right posterior cerebral artery infarction contributing the patient's presentation. The patient underwent general stroke protocol including Neurology evaluation with recommendations to add Plavix 75 mg daily to a current regimen of aspirin 81 mg daily. The patient's overall visual loss had improved by the time of discharge and the patient exhibited no evidence of unilateral extremity weakness, dysphagia, dysarthria, or facial asymmetry. Telemetry monitoring showed a sinus mechanism without evidence of acute arrhythmia or dysrhythmia, and the patient's vital signs remained stable. I have examined the patient at the time of discharge and discussed followup instructions with the patient and his . The patient verbalized understanding and in agreement and ready for discharge on 04/12/2018. DISCHARGE MEDICATIONS: 1. Acetaminophen 1000 mg p.o. at bedtime p.r.n. 2. Lipitor 40 mg p.o. q.a.m. 3. Colace 100 mg p.o. b.i.d. p.r.n. 4. Metformin 500 mg p.o. daily. 5. Protonix 40 mg p.o. daily. 6. Demadex 20 mg Tuesday, Tuesday, and Tuesday. 7. Enteric-coated aspirin 81 mg p.o. daily. 8. Plavix 75 mg p.o. daily. 9. Tramadol 50 mg p.o. q.6 hours p.r.n. pain. FOLLOWUP: The patient may follow up with his primary care provider, Anne Marie Abdi within 7 days of discharge. The patient will follow up with Dr. Cha Perez with [facility]. The patient will follow up with Dr. Jose Ramirez with Neurology Service. SPECIAL INSTRUCTIONS: Recommend stool guaiac and serial monitoring of CBC with the initiation of dual anti-platelet therapy. DIET: Heart healthy. ACTIVITY: As tolerated with driving restricted. CODE STATUS: Full. DISPOSITION: Home on 04/12/2018. TIME SPENT: Total time preparing and coordinating discharge is 35 minutes. Job ID: [id number]
[2018-04-13] MEDS ORDERED: Clopidogrel Bisulfate 75 MG TAB PO SCH (09:00)
== END 2018-04-12 17:07 | disposition home or self-care (01) | DRG 66 ==
LOC: ERS 16:07 → 2SE 20:39
PROVIDERS: ADMIT Emergency Medicine; ATTEND Emergency Medicine
DX: I63.331 Cerebral infarction due to thrombosis of right posterior cerebral artery (principal); E11.9 Type 2 diabetes mellitus without complications; E78.5 Hyperlipidemia, unspecified; I10 Essential (primary) hypertension; H54.3 Unqualified visual loss, both eyes; I65.01 Occlusion and stenosis of right vertebral artery; D50.9 Iron deficiency anemia, unspecified; Z96.651 Presence of right artificial knee joint; Z98.890 Other specified postprocedural states; Z96.1 Presence of intraocular lens; Z90.49 Acquired absence of other specified parts of digestive tract; Z95.1 Presence of aortocoronary bypass graft; Z96.643 Presence of artificial hip joint, bilateral; Z88.5 Allergy status to narcotic agent
CPT/HCPCS: 36415; 36416; 70450; 70496; 70498; 70551; 80048; 80053; 80061; 84484; 85007; 85025; 85027; 85610; 85730; 93005; 93306; J1650; S0028

== ENCOUNTER 2018-06-06 13:16 | Outpatient (CLI) | payer MEDICARE, BC, OTHER ==
[~2018-06-06 13:16] MED LIST changes: +Gadobenate Dimeglumine 529 MG/1 ML (20ML VIAL) ONE; -Iopamidol 370 76% 100 ML VIAL ONE
--- NOTE | 2018-06-06 16:30 | MRI ---
MRI BRAIN WITH AND WITHOUT CONTRAST: INDICATIONS: Follow up right posterior cerebral artery infarct. COMPARISON: MRI brain from 04/11/2018. That exam revealed an acute infarct involving the right occipital lobe, i n the distribution of the right posterior cerebral artery. TECHNIQUE: Multiplanar, multisequential imaging of the brain obtained. Post contrast images obtained after the administration of IV MultiHance. FINDINGS: FLAIR sequence again shows mild cortical volume loss. Moderately severe chronic ischemic white matter changes are again noted, stable in appearance. There is volume loss in the right occipital lobe, co nsistent with expected evolution of the right posterior cerebral artery distribution infarct. There is some increased cortical T1 signal, which suggests mild laminar necrosis. There is gliosis on the FLAIR and T2 sequence. There is gyral enhancement on the post contrast T1 images. No evidence of re stricted diffusion. No mass or edema. Intracranial internal carotid arteries are patent. The proximal anterior cerebral and middle cerebra l arteries show expected flow voids. The basilar artery is patent. The posterior cerebral arteries appear patent on post contrast images and appear symmetric. IMPRESSION: 1. Expected evolution of a right occipital lobe infarct in the distribution of the right posterior c erebral artery when compared to examination of 04/11/2018. 2. Moderately severe chronic ischemic white matter changes, which appear stable. POS: [facility]
== END 2018-06-06 13:17 | disposition home or self-care (01) ==
LOC: SCSMRI 13:16
PROVIDERS: ATTEND Psychiatry & Neurology Neurology
DX: I66.21 Occlusion and stenosis of right posterior cerebral artery (principal); I67.82 Cerebral ischemia
CPT/HCPCS: 70553; 82565; A9577

== ENCOUNTER 2019-04-04 12:25 | Outpatient (CLI) | payer MEDICARE, BC, OTHER ==
--- NOTE | 2019-04-04 13:53 | MRI ---
MRI BRAIN WITH AND WITHOUT IV CONTRAST: HISTORY: Occlusion of right posterior cerebral artery COMPARISON: 06/06/2018 FINDINGS: No restricted diffusion is seen. Changes of cortical atrophy and chronic small vessel ischemic diseas e are again seen. There is encephalomalacia in the right occipital lobe due to old infarction and associated increased cortical T1 signal indicative of mild laminar necrosis. No evidence of acute infarct, hemorrhage, mass, midline shift or abnormal extra-axial fluid collecti ons is noted. No abnormal postcontrast enhancement is seen. The ventricular size is appropriate and the basilar cisterns are patent. The visualized paranasal sinuses and mastoid air cells are well aerated. IMPRESSION: No evidence of acute intracranial process or mass.
== END 2019-04-04 12:26 | disposition home or self-care (01) ==
LOC: SCSMRI 12:25
PROVIDERS: ATTEND Nurse Practitioner Acute Care
DX: I66.21 Occlusion and stenosis of right posterior cerebral artery (principal)
CPT/HCPCS: 70553; 82565

== ENCOUNTER 2019-04-20 14:15 | Outpatient (CLI) | payer MEDICARE, BC, OTHER ==
[2019-04-20 14:47] LABS: #Eosinphils 0.1 thou/uL (0.0-0.7); #Lymphocytes 1.8 thou/uL (1.20-3.40); #Monocytes 0.5 thou/uL (0.11-0.59); #Neutrophils 4.3 thou/uL (1.40-6.50); %Basophils 0.3 % (0.0-1.0); %Eosinophils 0.9 % (0.0-10.0); %Lymphocytes 27.1 % (21.0-51.0); %Neutrophils 63.8 % (42.0-75.0); Mean Corpuscular HGB CONC 32.9 g/dL (32.0-36.0); Mean Corpuscular Hemoglobin 30.7 pg (27.0-31.0); Mean Corpuscular Volume 93.2 fL (78.0-98.0); Mean Platelet Volume 7.8 fL (7.4-10.4); Platelet Count 232 thou/uL (130-400); RBC Distribution Width 12.5 % (11.5-14.5); Red Blood Cell (RBC) Count 5.54 mill/uL (4.70-6.10); White Blood Cell (WBC) Count 6.7 thou/uL (4.8-10.8)
[2019-04-20 15:13] LABS: ALT (SGPT) 16 U/L (8-55); AST (SGOT) 18 U/L (5-34); Albumin 4.3 g/dL (3.4-4.8); Alkaline Phosphatase 85 U/L (40-110); Anion Gap 14 mmol/L (10-20); BUN (Urea Nitrogen) 14 mg/dL (8.4-25.7); Calc. Creatinine Clearance 0 mL/min (70-130); Calcium 9.4 mg/dL (7.8-10.44); Carbon Dioxide 27 mmol/L (23-31); Chloride 102 mmol/L (98-107); Estimated GFR-MDRD 67; Globulin 2.5 g/dL (2.4-3.5); Glucose 157 mg/dL (83-110); Potassium 4.2 mmol/L (3.5-5.1); Protein, Total 6.8 g/dL (5.8-8.1); Sodium 139 mmol/L (136-145)
--- NOTE | 2019-04-23 18:59 | EKG ---
Test Reason : Blood Pressure : / mmHG Vent. Rate : 074 BPM Atrial Rate : 074 BPM P-R Int : 162 ms QRS Dur : 110 ms QT Int : 416 ms P-R-T Axes : 071 100 021 degrees QTc Int : 461 ms Normal sinus rhythm Rightward axis Incomplete left bundle branch block Borderline ECG When compared with ECG of 10-APR-2018 17:17, Nonspecific T wave abnormality now evident in Inferior leads Confirmed by HEBERT MARIE, SCecilio ([id number]) on 04/23/2019 6:58:53 PM Referred By: HAMILTON Confirmed By:DR. Mila AMBROSIO MD
== END 2019-04-20 14:16 | disposition home or self-care (01) ==
LOC: LABBT 14:15
PROVIDERS: ATTEND Surgery
DX: Z01.818 Encounter for other preprocedural examination (principal); K43.2 Incisional hernia without obstruction or gangrene
CPT/HCPCS: 80053; 85025; 93005; 93010

== ENCOUNTER 2019-04-25 07:49 | Inpatient (IN) | payer MEDICARE, BC, OTHER ==
[2019-04-25] MEDS ORDERED: Fentanyl 100 MCG/2 ML VIAL ONE ×4 (09:04→12:08)
[2019-04-25] MEDS ORDERED: Lidocaine 1% w/Epinephrine 1:100K 20 ML VIAL ONE (09:36)
[2019-04-25] MEDS ORDERED: Bupivacaine 0.25% HCL 30 ML VIAL ONE (09:36)
[2019-04-25] MEDS ORDERED: Ketamine 50 MG/ML (10ML VIAL) ONE (09:56)
[2019-04-25] MEDS ORDERED: Lidocaine 1% PF 5 ML VIAL ONE (10:00)
[2019-04-25] MEDS ORDERED: Succinylcholine Chloride 20 MG/ML 10 ml SYRINGE FS ONE (10:00)
[2019-04-25] MEDS ORDERED: Ondansetron PF 4 MG/2 ML Vial ONE (10:00)
[2019-04-25] MEDS ORDERED: Dexamethasone 20 MG/5 ML VIAL ONE (10:00)
[2019-04-25] MEDS ORDERED: PROPOFOL 200 MG/20 ML VIAL ONE (10:00)
[2019-04-25] MEDS ORDERED: hydrALAZINE 20 MG/ML VIAL SLOW IVP PRN (11:14)
[2019-04-25] MEDS ORDERED: Promethazine HCl 25 MG/ML VIAL IM PRN ×2 (11:14→11:27)
[2019-04-25] MEDS ORDERED: Ondansetron PF 4 MG/2 ML Vial IVP PRN (11:14)
[2019-04-25] MEDS ORDERED: Fentanyl 100 MCG/2 ML VIAL SLOW IVP PRN (11:16)
[2019-04-25] MEDS ORDERED: HYDROcodone/Acetaminophen 5/325 mg Tablet PO PRN ×2 (11:19)
[2019-04-25] MEDS ORDERED: Ondansetron HCl/PF 4 MG/2 ML Vial IVP PRN (11:27)
[2019-04-25] MEDS ORDERED: Promethazine HCl 25 MG/ML VIAL SLOW IVP PRN (11:27)
[2019-04-25] MEDS ORDERED: HYDROmorphone 0.5 MG/0.5 ML SYRINGE ONE ×2 (12:30→12:59)
[2019-04-25] MEDS ORDERED: Ketorolac Tromethamine 30 MG/ML VIAL ONE (12:30)
[2019-04-25] MEDS: Ketorolac Tromethamine 30 MG/ML VIAL IVP SCH ×2 (15:36→17:22)
[2019-04-25] MEDS: Sodium Chloride 0.9% 1,000 ML IV SCH ×2 (15:36→20:41)
[2019-04-25 15:38] VITALS: BMI 24.5
[2019-04-25] MEDS: CEFAZOLIN 2 GM in Premix Bag 1 BAG IVPB SCH (17:22)
[2019-04-25] MEDS: Famotidine 20 MG TAB PO SCH (20:41)
[2019-04-25] MEDS: Famotidine/PF 20 mg/2ml Vial SLOW IVP SCH (20:42)
[2019-04-26] MEDS: Sodium Chloride 0.9% 1,000 ML IV SCH (00:04)
[2019-04-26] MEDS: CEFAZOLIN 2 GM in Premix Bag 1 BAG IVPB SCH (00:17)
[2019-04-26] MEDS: Ketorolac Tromethamine 30 MG/ML VIAL IVP SCH ×3 (00:17→11:59)
[2019-04-26 05:32] LABS: #Lymphocytes 1.2 thou/uL (1.20-3.40); #Monocytes 0.9 thou/uL (0.11-0.59); %Basophils 0.2 % (0.0-1.0); %Eosinophils 0.1 % (0.0-10.0); %Lymphocytes 9.6 % (21.0-51.0); %Monocytes 7.2 % (0.0-10.0); %Neutrophils 82.8 % (42.0-75.0); Hemoglobin 14.1 g/dL (14.0-18.0); Mean Corpuscular HGB CONC 32.6 g/dL (32.0-36.0); Mean Corpuscular Hemoglobin 31.2 pg (27.0-31.0); Mean Corpuscular Volume 95.7 fL (78.0-98.0); Platelet Count 193 thou/uL (130-400); RBC Distribution Width 12.3 % (11.5-14.5); Red Blood Cell (RBC) Count 4.51 mill/uL (4.70-6.10); White Blood Cell (WBC) Count 12.1 thou/uL (4.8-10.8)
[2019-04-26 05:56] LABS: Anion Gap 9 mmol/L (10-20); BUN (Urea Nitrogen) 10 mg/dL (8.4-25.7); Calc. Creatinine Clearance 71 mL/min (70-130); Calcium 8.5 mg/dL (7.8-10.44); Carbon Dioxide 27 mmol/L (23-31); Chloride 105 mmol/L (98-107); Estimated GFR-MDRD 85; Glucose 115 mg/dL (83-110); Potassium 4.2 mmol/L (3.5-5.1); Sodium 137 mmol/L (136-145)
--- NOTE | 2019-04-26 07:20 | OP ---
DATE OF PROCEDURE: 04/25/2019 PREOPERATIVE DIAGNOSIS: Incisional ventral hernia. PROCEDURE PERFORMED: 1. Open ventral hernia repair with mesh. 2. Open lysis of adhesions. INDICATIONS: An 84-year-old male, who has had emergency surgery, had to have laparotomy, developed an incisional hernia. FINDINGS: There were actually 2 hernias. There was mesh in the lower abdomen and the bowel was stuck to the mesh, which required very careful lysis of adhesions. Each of the 2 hernias were about 4 cm in diameter. They were opened up to a single 8 cm defect, 15 x 10.8 cm PROCEED mesh used. DESCRIPTION OF PROCEDURE: After informed consent was obtained, the patient was taken to the operating room and given general endotracheal anesthesia. He was placed in supine position. Abdomen was prepped and draped in the usual fashion. A midline incision was performed, subcu divided sharply. The hernia sac was opened. The left side was pretty free. The superior was free. There were some adhesions on the right, which were taken down sharply. Inferiorly, there was existing mesh and there was a loop of small bowel that was intimately involved with this mesh. Very carefully, this was lysed sharply with Metzenbaum scissors. The bowel loop was inspected carefully. I did not see any evidence of enterotomy. The hemostasis was assured. The defect measured at 8 cm. A 15.2 x 10.8 cm PROCEED mesh was fashioned with 8 alternating colored 0 Ethibond sutures. Then, this was hydrated, inserted intra-abdominally. The sutures were individually grasped with the GraNee needle to position the mesh optimally. These were then tied down and the fascia was then closed with interrupted [id number] of #1 Prolene. The subcu was reapproximated with interrupted 3-0 Vicryl and the skin closed with a running subcuticular 4-0 Rapide. An abdominal binder was applied. The patient tolerated the procedure well, transferred to Recovery in good condition. Sponge and needle count verified correct x2. Job ID: [id number]
[2019-04-26 08:18] VITALS: BP 107/65; TEMP 97.2
[2019-04-26] MEDS ORDERED: FLU VACC TS2019-20(65YR UP)/PF 180 MCG/0.5 ML SYRINGE IM ONE (09:00)
[2019-04-26] MEDS ORDERED: Enoxaparin Sodium 40 MG/0.4 ML SYRINGE SC SCH (09:00)
--- NOTE | 2019-04-26 09:31 | PDOC.GSPN ---
Surgery Progress Note: Subj - Subjective Patient reports: positive flatus, tolerating liquids well, voiding w/o difficulty, no bowel movement Narrative: Mr. Mcclellan is an 84 year old man who is 1 day s/p ventral hernia repair. Patient reports pain level of 7-8/10. Denies any nausea, vomiting, or fever. He is ambulatory, voiding without difficulty, reports flatulence, but has not yet had a bowel movement. Patient has been able to tolerate liquids and solid food (had fruit this morning). Surgery Progress Note: Obj - Vital signs Vital signs: Vital Signs - Most Recent Temp Pulse Resp BP Pulse Ox 97.2 F L 68 20 107/65 97 04/26/19 08:11 04/26/19 08:11 04/26/19 08:11 04/26/19 08:11 04/26/19 08:11 Surgery Progress Note: Results - Labs Result Diagrams: 04/26/19 05:01 04/26/19 05:01 Lab results: Laboratory Results - last 24 hr 04/26/19 04/26/19 05:01 05:01 WBC 12.1 H RBC 4.51 L Hgb 14.1 Hct 43.2 MCV 95.7 MCH 31.2 H MCHC 32.6 RDW 12.3 Plt Count 193 MPV 8.0 Neutrophils % 82.8 H Lymphocytes % 9.6 L Monocytes % 7.2 Eosinophils % 0.1 Basophils % 0.2 Neutrophils # 10.0 H Lymphocytes # 1.2 Monocytes # 0.9 H Eosinophils # 0.0 Basophils # 0.0 Sodium 137 Potassium 4.2 Chloride 105 Carbon Dioxide 27 Anion Gap 9 L BUN 10 Creatinine 0.86 Estimated GFR (MDRD) 85 Glucose 115 H Calcium 8.5 Surgery Progress Note: A/P - Problem (1) Ventral hernia Current Visit: Yes Code(s): K43.9 - VENTRAL HERNIA WITHOUT OBSTRUCTION OR GANGRENE Status: Acute Assessment and Plan: Patient is doing well, is ambulatory, voiding, flatulent, tolerating food and liquid well. Pain level 7-8/10. - Plan Plan: Post-op day 1 ventral hernia repair: pain control, continue ambulation
[2019-04-26] MEDS: Famotidine 20 MG TAB PO SCH (09:47)
[2019-04-26] MEDS: Famotidine/PF 20 mg/2ml Vial SLOW IVP SCH (09:49)
--- NOTE | 2019-04-26 12:10 | DIS ---
DATE OF ADMISSION: 04/25/2019 DATE OF DISCHARGE: 04/26/2019 DISCHARGE DIAGNOSIS: Incisional ventral hernia. PROCEDURES DURING ADMISSION: Open ventral hernia repair with mesh. HOSPITAL COURSE: The patient was admitted, taken to the operating room, where he underwent open repair and lysis of adhesions. Postoperatively, he did well. He is passing flatus, tolerating diet. He is discharged to home on tramadol and Zofran. He will follow up with me in 10 days. Job ID: [id number]
== END 2019-04-26 13:00 | disposition home or self-care (01) | DRG 355 ==
LOC: SDC 07:49 → SURG A 15:28
PROVIDERS: ADMIT Surgery; ATTEND Surgery
PROC: 0WUF0JZ Supplement Abdominal Wall with Synthetic Substitute, Open Approach (ICD-10-PCS; principal; 2019-04-25)
DX: K43.9 Ventral hernia without obstruction or gangrene (principal); Z88.5 Allergy status to narcotic agent
CPT/HCPCS: 36415; 80048; 85025; J0690; J1100; J1170; J1650; J1885; J2001; J2405; J2704; J3010; S0020